=== PATIENT | male | born 1955 | race Caucasian/White ===

== ENCOUNTER → 2020-12-15 12:14 | Outpatient (CLI) | payer OTHER, SELFPAY ==
--- NOTE | 2020-12-15 | DI.RAD.S_ITS ---
PROCEDURE: XR KNEE LT 3V INDICATIONS: LEFT KNEE PAIN TECHNIQUE: 3 views of the knee were acquired. COMPARISON: None. FINDINGS: Bones: No fractures or dislocations. No suspicious bony lesions. Medial compartment moderately severe joint space narrowing with near [id number] articulation. Soft tissues: No joint effusion. No suspicious soft tissue calcifications. IMPRESSION: No trauma found but moderately severe medial compartment degenerative knee joint osteoarthritis is present as noted. Dictated by: Mateusz Ziegler M.D. on 12/15/2020 at 14:36 Approved by: Mateusz Ziegler M.D. on 12/15/2020 at 14:37
== END ==
PROVIDERS: Referring Provider Student in an Organized Health Care Education/Training Program; Visit Provider Student in an Organized Health Care Education/Training Program
DX: M25.562 Pain in left knee (principal); M17.12 Unilateral primary osteoarthritis, left knee
CPT/HCPCS: 73562

== ENCOUNTER → 2021-01-12 11:43 | Outpatient (CLI) | payer OTHER, SELFPAY ==
[2021-01-12 14:09] LABS: COVID19 -Nasal RAPID Negative (Negative)
== END ==
PROVIDERS: PCP Student in an Organized Health Care Education/Training Program; Visit Provider Student in an Organized Health Care Education/Training Program
DX: Z20.822 Contact with and (suspected) exposure to COVID-19 (principal); Z01.812 Encounter for preprocedural laboratory examination
CPT/HCPCS: 87635; C9803

== ENCOUNTER 2021-02-15 13:00 | Outpatient (RCR) | payer OTHER, SELFPAY ==
--- NOTE | 2021-01-12 16:02 | PT.OIE ---
Current Diagnoses Unspecified abnormalities of gait and mobility (01/12/21) Visit Care Team Role Provider Type Mary Alice Bearden MD Attending Provider Physician Primary Care Provider Referring Provider Specialty: Family Practice Address: [address] [place] [address], [address], [place], [address] Email: [email or web address] Physical Therapy Initial Evaluation PT-OP-A Visit Information Start: 01/11/21 08:30 Freq: Status: Active Protocol: Document 01/12/21 13:02 MB (Rec: 01/12/21 13:19 MB [id number]) Out-Patient Physical Therapy Visit Information Visit Information Visit Type Initial Evaluation Visit Note Pre-auth required, [employer] Visit Start Time 13:02 Visit Stop Time 13:45 Total Visit Minutes 43 Visit Number 1 Number of MAINTENANCE DIRECTOR Visits 0 Evaluation Information Evaluation Date 01/12/21 PT-OP-B Current Condition Start: 01/11/21 08:30 Freq: Status: Active Protocol: Document 01/12/21 13:02 MB (Rec: 01/12/21 13:19 MB [id number]) Current Condition History of Current Condition Onset Date 2014 Current Complaints Pain with walking History of Current Condition In 2014, pt fell running upwards on escalator that was moving down. He tripped and hit his left knee cap. He had no fracture. He had 6 monhts of PT and did not get better. He had an MRI and had left knee surgery around 2015. He thinks it was a meniscus repair. He was told that he had OA and patellar tendon damage. Further PMH: depression/ anxiety, HTN, kidney disease, rheumatic fever, hypothyroidism, hyperlipidemia Pt likes to walk everyday and is walking about 2 miles a day . He tried jogging and that was troublesome on his knee. Snorkeling was fun and good on his knee. He tried a regular upright bike and it was troublesome on the knee. Pt would like to be able to walk on trails 3-4 miles. He does not have walking sticks. He tried in the past and it did not work. Pt is sleeping so so. He is taking BP medicine and sometimes he has to get up at night to use the restroom. He occ has to get up and pace and has some depression. Pt reports 4/10 anterior left knee pain that is more distal medial that is worst with walking. Prior Treatments and Tests Left knee x-ray 11/17/20: no trauma but moderately severe medial compartment degenerative knee joint OA is present Treatment Goals Patient/Caregiver Goals To walk 3-4 miles in the yu . PT-OP-C Subjective Start: 01/11/21 08:30 Freq: Status: Active Protocol: Document 01/12/21 13:02 MB (Rec: 01/12/21 13:19 MB [id number]) OP-PT Subjective Patient Comments Patient Comments See history of current condition Patient Questionnaires Lower Extremity Functional Scale LEFS Score 59 LEFS Impairment 20 to 39% Impaired (Score 48- 62) PT-OP-D Balance Start: 01/11/21 08:30 Freq: Status: Active Protocol: Document 01/12/21 13:02 MB (Rec: 01/12/21 15:50 MB [id number]) Balance Tests Other Other Balance Tests Performed Pt has trouble keeping balance for heel raises LLE, even with B index finger support against wall, shoes are off. He self-corrects LOB PT-OP-F Manual Assessment Start: 01/12/21 15:50 Freq: Status: Active Protocol: Document 01/12/21 13:02 MB (Rec: 01/12/21 15:52 MB [id number]) Manual Assessments Soft Tissue Assessment Soft Tissue Mobility Assessment Pt presents with increased tension left adductor attachment medial knee, left medial distal knee joint is more boggy and larger to palpation than the right, B vastus lateralis tension, soft tissue bump medial posterior left knee and tension over middle proximal part of posterior left knee PT-OP-G Mobility & Gait Start: 01/11/21 08:30 Freq: Status: Active Protocol: Document 01/12/21 13:02 MB (Rec: 01/12/21 15:50 MB [id number]) OP Gait Assessment Gait Gait Assistance Required: Independent Distance (Feet) 50 Able to Maintain Weight Bearing Status Yes During Gait Assistive Devices Assistive Device None Orthotic/Prosthetic Devices or Brace: No Gait Deviations General Gait Pattern Antalgic,Decreased Stride Length,Flexed Trunk Factors Limiting Gait Function Factors Limiting Gait Function Limited Range of Motion,Pain, Poor Balance Comments Gait Comments Pt presents with slow and careful gait, wide JOSE, decreased step length, left rearfoot appears occ unstable with weight acceptance and he has left LE anatomical changes compared to the right, see postural comments PT-OP-J Posture/Palpation/Skin Start: 01/11/21 08:30 Freq: Status: Active Protocol: Document 01/12/21 13:02 MB (Rec: 01/12/21 15:50 MB [id number]) Posture Evaluation Comments Posture Comments Standing bare foot: soft tissue bump medial posterior left knee and lateral distal femur appears lateral versus bony changes of left knee. Left tibial torsion altered compared to the right and more overpronation left foot and pes planus compared to the right. B rounded shoulders, decreased lumbar lordosis, right iliac crest mildly higher than the left and pt walks with left leg functionally longer than the right. PT-OP-K Range of Motion Start: 01/11/21 08:30 Freq: Status: Active Protocol: Document 01/12/21 13:02 MB (Rec: 01/12/21 15:50 MB [id number]) Knee Goniometric Range of Motion Knee ROM Limitations Comments Supine AROM right knee 0-130 deg and left knee 0-120 deg. PT-OP-M Strength Start: 01/11/21 08:30 Freq: Status: Active Protocol: Document 01/12/21 13:02 MB (Rec: 01/12/21 15:50 MB [id number]) Hip Strength Hip Manual Muscle Testing Left Flexion (L2) 5 Normal Abduction 5 Normal Adduction 5 Normal Right Flexion (L2) 5 Normal Abduction 5 Normal Adduction 5 Normal Knee Strength Knee Manual Muscle Testing Left Flexion (S2) 5 Normal Extension (L3) 5 Normal Right Flexion (S2) 5 Normal Extension (L3) 5 Normal Ankle/Foot Strength Ankle and Foot Manual Muscle Testing Left Dorsiflexion (L4) 5 Normal Plantarflexion (S1) 3+ Fair+ Inversion 5 Normal Eversion (S1) 5 Normal Comments LOB and difficulty trying to complete 20 reps heel raises with B index finger support on wall and pt starts to lean heavily into the wall Right Dorsiflexion (L4) 5 Normal Plantarflexion (S1) 4 Good Inversion 5 Normal Eversion (S1) 5 Normal Comments Mild difficulty completing 20 reps heel raises with B index finger steadying on wall Toe Strength Toe Manual Muscle Testing Left Great Toe Flexion 5 Normal Right Great Toe Extension 5 Normal PT-OP-T Assessment and Plan Start: 01/11/21 08:30 Freq: Status: Active Protocol: Document 01/12/21 13:02 MB (Rec: 01/12/21 16:02 MB [id number]) Physical Therapy Assessment Rehab Potential Rehabilitation Potential Fair Evaluation Complexity Number of Personal Factors/Comorbidities 1-2 Number of Body Systems Impaired 1-2 Clinical Presentation at Evaluation Evolving Impairments Impairments Activity Tolerance,Balance, Functional Activities, Functional Mobility,Gait,Pain, Posture,ROM,Soft Tissue Mobility Other Impairments Personal factors include sleeping changes/trouble sleeping through the night. His clinical presentation is evolving in setting of progressive degenerative changes of left knee after injury and surgery and x-ray revealing arthritis. Other Concerns Fall Risk Yes Goals 4 Linotype Mechanic Goal (LTG) Pt will perform progressive HEP with I including pelvic realignment, flexibility, balance, core, breathing and strengthening exercises to decrease pain and improve balance by 03/14/21. LTG Duration 8 weeks 3 Linotype Mechanic Goal (LTG) Pt will gait train at least 1500 feet in 6 minutes to improve community ambulation by 03/14/21. LTG Duration 8 weeks 2 Linotype Mechanic Goal (LTG) Pt will perform WNLs on a standardized balance test to decrease fall risk by 03/14/21. LTG Duration 8 weeks 1 Linotype Mechanic Goal (LTG) Pt will perform 20 reps B heel raises with only index finger support for balance to improve strength and balance by 03/14/21. LTG Duration 8 weeks Assessment Summary Assessment Pt is a 65 y/o presenting with chronic left knee injury that was s/p meniscal surgery approximately 5 years ago. He is found to have arthritis. He had PT before surgery but not after and was mostly given exercises. He likes to walk and is having pain and antalgic gait with his short walks for exercises. He wakes up at night and has to walk around and this inhibits recovery. He will benefit from [place] Breathing training to assist with this. He also reports a history of plantar fasciitis and has both knee and foot changes and this is related to his left knee pain and presentation. PT introduced possible benefits of both thigh high compression and [place] sock today. Pt will benefit from PT to address pelvic obliquities affecting gait and alignment, flexibility, gait, balance and strength. Barriers include the degenerative process of his left knee. Physical Therapy Plan Frequency and Duration Frequency of Treatment 2x/Week Duration of Treatment 8 weeks Plan of Care Start Date 01/12/21 Plan of Care End Date 03/14/21 Therapeutic Interventions Therapeutic Interventions Balance Training,Canalithic Repositioning,Gait Training, Home Exercise Program,Joint Mobilizations,Manual Therapy, Neuromuscular Re-education, Patient/Caregiver Education, Self-Care/Home Management,Soft Tissue Mobilization,Taping, Therapeutic Activities, Therapeutic Exercises Modalities Cold Pack/Ice Massage,Hot Packs Next Visit Focus/Plan Next Note Type Treatment Note Next Visit Plan B[place]yko Breathing to help with sleeping, pain and anxiety to help with recovery, pelvic realignment exercises, hamstring stretch with AP, Aron stretch, quad rolling and left adductor work, teach quad rolling for home, KT as needed to help with walking, assess upright bike and ed pt on correct height for his seat at home, Trauma Release exercises for strengthening and balance in the future. Review [place] sock and compression hose ed.
--- NOTE | 2021-01-17 09:44 | PT.OTN ---
Current Diagnoses Unspecified abnormalities of gait and mobility (01/17/21) Physical Therapy Treatment Note PT-OP-A Visit Information Start: 01/11/21 08:30 Freq: Status: Active Protocol: Document 01/17/21 09:02 MB (Rec: 01/17/21 09:38 MB [id number]) Out-Patient Physical Therapy Visit Information Visit Information Visit Type Treatment Note Visit Note Pre-auth required, [employer] Pt goes by Jacinto Visit Start Time 09:02 Visit Stop Time 09:42 Total Visit Minutes 40 Visit Number 2 PT-OP-B Current Condition Start: 01/11/21 08:30 Freq: Status: Active Protocol: Document 01/12/21 13:02 MB (Rec: 01/12/21 13:19 MB [id number]) Current Condition History of Current Condition Onset Date 2014 Current Complaints Pain with walking History of Current Condition In 2014, pt fell running upwards on escalator that was moving down. He tripped and hit his left knee cap. He had no fracture. He had 6 monhts of PT and did not get better. He had an MRI and had left knee surgery around 2015. He thinks it was a meniscus repair. He was told that he had OA and patellar tendon damage. Further PMH: depression/ anxiety, HTN, kidney disease, rheumatic fever, hypothyroidism, hyperlipidemia Pt likes to walk everyday and is walking about 2 miles a day . He tried jogging and that was troublesome on his knee. Snorkeling was fun and good on his knee. He tried a regular upright bike and it was troublesome on the knee. Pt would like to be able to walk on trails 3-4 miles. He does not have walking sticks. He tried in the past and it did not work. Pt is sleeping so so. He is taking BP medicine and sometimes he has to get up at night to use the restroom. He occ has to get up and pace and has some depression. Pt reports 4/10 anterior left knee pain that is more distal medial that is worst with walking. Prior Treatments and Tests Left knee x-ray 11/17/20: no trauma but moderately severe medial compartment degenerative knee joint OA is present Treatment Goals Patient/Caregiver Goals To walk 3-4 miles in the yu . PT-OP-C Subjective Start: 01/11/21 08:30 Freq: Status: Active Protocol: Document 01/17/21 09:02 MB (Rec: 01/17/21 09:38 MB [id number]) OP-PT Subjective Patient Comments Patient Comments Pt states that he is doing better since he is not having to prep for colonoscopy anymore. It was cancelled and will have to be re-scheduled. He went kayaking and fishing. PT-OP-D Balance Start: 01/11/21 08:30 Freq: Status: Active Protocol: Document 01/12/21 13:02 MB (Rec: 01/12/21 15:50 MB [id number]) Balance Tests Other Other Balance Tests Performed Pt has trouble keeping balance for heel raises LLE, even with B index finger support against wall, shoes are off. He self-corrects LOB PT-OP-F Manual Assessment Start: 01/12/21 15:50 Freq: Status: Active Protocol: Document 01/12/21 13:02 MB (Rec: 01/12/21 15:52 MB [id number]) Manual Assessments Soft Tissue Assessment Soft Tissue Mobility Assessment Pt presents with increased tension left adductor attachment medial knee, left medial distal knee joint is more boggy and larger to palpation than the right, B vastus lateralis tension, soft tissue bump medial posterior left knee and tension over middle proximal part of posterior left knee PT-OP-G Mobility & Gait Start: 01/11/21 08:30 Freq: Status: Active Protocol: Document 01/12/21 13:02 MB (Rec: 01/12/21 15:50 MB [id number]) OP Gait Assessment Gait Gait Assistance Required: Independent Distance (Feet) 50 Able to Maintain Weight Bearing Status Yes During Gait Assistive Devices Assistive Device None Orthotic/Prosthetic Devices or Brace: No Gait Deviations General Gait Pattern Antalgic,Decreased Stride Length,Flexed Trunk Factors Limiting Gait Function Factors Limiting Gait Function Limited Range of Motion,Pain, Poor Balance Comments Gait Comments Pt presents with slow and careful gait, wide JOSE, decreased step length, left rearfoot appears occ unstable with weight acceptance and he has left LE anatomical changes compared to the right, see postural comments PT-OP-J Posture/Palpation/Skin Start: 01/11/21 08:30 Freq: Status: Active Protocol: Document 01/12/21 13:02 MB (Rec: 01/12/21 15:50 MB [id number]) Posture Evaluation Comments Posture Comments Standing bare foot: soft tissue bump medial posterior left knee and lateral distal femur appears lateral versus bony changes of left knee. Left tibial torsion altered compared to the right and more overpronation left foot and pes planus compared to the right. B rounded shoulders, decreased lumbar lordosis, right iliac crest mildly higher than the left and pt walks with left leg functionally longer than the right. PT-OP-K Range of Motion Start: 01/11/21 08:30 Freq: Status: Active Protocol: Document 01/12/21 13:02 MB (Rec: 01/12/21 15:50 MB [id number]) Knee Goniometric Range of Motion Knee ROM Limitations Comments Supine AROM right knee 0-130 deg and left knee 0-120 deg. PT-OP-M Strength Start: 01/11/21 08:30 Freq: Status: Active Protocol: Document 01/12/21 13:02 MB (Rec: 01/12/21 15:50 MB [id number]) Hip Strength Hip Manual Muscle Testing Left Flexion (L2) 5 Normal Abduction 5 Normal Adduction 5 Normal Right Flexion (L2) 5 Normal Abduction 5 Normal Adduction 5 Normal Knee Strength Knee Manual Muscle Testing Left Flexion (S2) 5 Normal Extension (L3) 5 Normal Right Flexion (S2) 5 Normal Extension (L3) 5 Normal Ankle/Foot Strength Ankle and Foot Manual Muscle Testing Left Dorsiflexion (L4) 5 Normal Plantarflexion (S1) 3+ Fair+ Inversion 5 Normal Eversion (S1) 5 Normal Comments LOB and difficulty trying to complete 20 reps heel raises with B index finger support on wall and pt starts to lean heavily into the wall Right Dorsiflexion (L4) 5 Normal Plantarflexion (S1) 4 Good Inversion 5 Normal Eversion (S1) 5 Normal Comments Mild difficulty completing 20 reps heel raises with B index finger steadying on wall Toe Strength Toe Manual Muscle Testing Left Great Toe Flexion 5 Normal Right Great Toe Extension 5 Normal PT-OP-Q Treatments Start: 01/11/21 08:30 Freq: Status: Active Protocol: Document 01/17/21 09:02 MB (Rec: 01/17/21 09:38 MB [id number]) Therapeutic Exercises Supine Exercises Abdominal drawing in and pelvic tilt Comments 3 reps, ed to perform before Alek stretch Aron stretch Side bilateral Comments Ed in abdominal drawing in and pelvic tilt first, opposite leg bent, B 45 s Hamstring stretch with MWM AP Side bilateral Comments 1 minute hold, many APs 1 rep each leg Sitting Exercises Rolling pin STM Side bilateral Comments Focus on the left, ed in see saw motion Manual Therapy Treatment Other Other Manual Treatments STM from PT: left hip adductors, rectus femoris and vastus lateralis PT-OP-T Assessment and Plan Start: 01/11/21 08:30 Freq: Status: Active Protocol: Document 01/17/21 09:02 MB (Rec: 01/17/21 09:38 MB [id number]) Physical Therapy Assessment Rehab Potential Rehabilitation Potential Fair Evaluation Complexity Number of Personal Factors/Comorbidities 1-2 Number of Body Systems Impaired 1-2 Clinical Presentation at Evaluation Evolving Impairments Impairments Activity Tolerance,Balance, Functional Activities, Functional Mobility,Gait,Pain, Posture,ROM,Soft Tissue Mobility Other Impairments Personal factors include sleeping changes/trouble sleeping through the night. His clinical presentation is evolving in setting of progressive degenerative changes of left knee after injury and surgery and x-ray revealing arthritis. Other Concerns Fall Risk Yes Goals 4 Nursing Home Goal (LTG) Pt will perform progressive HEP with I including pelvic realignment, flexibility, balance, core, breathing and strengthening exercises to decrease pain and improve balance by 03/14/21. LTG Duration 8 weeks 3 Nursing Home Goal (LTG) Pt will gait train at least 1500 feet in 6 minutes to improve community ambulation by 03/14/21. LTG Duration 8 weeks 2 Nursing Home Goal (LTG) Pt will perform WNLs on a standardized balance test to decrease fall risk by 03/14/21. LTG Duration 8 weeks 1 Tea Room Manager Goal (LTG) Pt will perform 20 reps B heel raises with only index finger support for balance to improve strength and balance by 03/14/21. LTG Duration 8 weeks Assessment Summary Assessment Initiated hamstring and Aron stretches today, self-rolling pin massage and manual work from PT and he tolerates well and his left hip adductors and vastus lateralis tension improve. Con't plan per below. Physical Therapy Plan Frequency and Duration Frequency of Treatment 2x/Week Duration of Treatment 8 weeks Plan of Care Start Date 01/12/21 Plan of Care End Date 03/14/21 Therapeutic Interventions Therapeutic Interventions Balance Training,Canalithic Repositioning,Gait Training, Home Exercise Program,Joint Mobilizations,Manual Therapy, Neuromuscular Re-education, Patient/Caregiver Education, Self-Care/Home Management,Soft Tissue Mobilization,Taping, Therapeutic Activities, Therapeutic Exercises Modalities Cold Pack/Ice Massage,Hot Packs Next Visit Focus/Plan Next Note Type Treatment Note Next Visit Plan Scott Breathing to help with sleeping, pain and anxiety to help with recovery, pelvic realignment exercises, KT as needed to help with walking, assess upright bike and ed pt on correct height for his seat at home, Trauma Release exercises for strengthening and balance in the future
--- NOTE | 2021-01-20 11:22 | PT.OTN ---
Current Diagnoses Unspecified abnormalities of gait and mobility (01/20/21) Physical Therapy Treatment Note PT-OP-A Visit Information Start: 01/11/21 08:30 Freq: Status: Active Protocol: Document 01/20/21 10:33 SP (Rec: 01/20/21 11:38 SP [id number]) Out-Patient Physical Therapy Visit Information Visit Information Visit Type Treatment Note Visit Note Pre-auth required, [employer] Advantage Pt goes by Jacinto Visit Start Time 10:33 Visit Stop Time 11:22 Total Visit Minutes 49 Visit Number 3 Number of MENAGERIE CARETAKER Visits 1 Evaluation Information Evaluation Date 01/12/21 PT-OP-B Current Condition Start: 01/11/21 08:30 Freq: Status: Active Protocol: Document 01/12/21 13:02 MB (Rec: 01/12/21 13:19 MB [id number]) Current Condition History of Current Condition Onset Date 2014 Current Complaints Pain with walking History of Current Condition In 2014, pt fell running upwards on escalator that was moving down. He tripped and hit his left knee cap. He had no fracture. He had 6 monhts of PT and did not get better. He had an MRI and had left knee surgery around 2015. He thinks it was a meniscus repair. He was told that he had OA and patellar tendon damage. Further PMH: depression/ anxiety, HTN, kidney disease, rheumatic fever, hypothyroidism, hyperlipidemia Pt likes to walk everyday and is walking about 2 miles a day . He tried jogging and that was troublesome on his knee. Snorkeling was fun and good on his knee. He tried a regular upright bike and it was troublesome on the knee. Pt would like to be able to walk on trails 3-4 miles. He does not have walking sticks. He tried in the past and it did not work. Pt is sleeping so so. He is taking BP medicine and sometimes he has to get up at night to use the restroom. He occ has to get up and pace and has some depression. Pt reports 4/10 anterior left knee pain that is more distal medial that is worst with walking. Prior Treatments and Tests Left knee x-ray 11/17/20: no trauma but moderately severe medial compartment degenerative knee joint OA is present Treatment Goals Patient/Caregiver Goals To walk 3-4 miles in the yu . PT-OP-C Subjective Start: 01/11/21 08:30 Freq: Status: Active Protocol: Document 01/20/21 10:33 SP (Rec: 01/20/21 11:38 SP [id number]) OP-PT Subjective Patient Comments Patient Comments Pt stated saw ortho and not recommending L knee replacement but completed an injection lateral aspect of L knee and helping alot. Did have some side effects of hiccups for about 12 hours, has decreased but still getting occasionally. Patient Reported Progress Improving PT-OP-D Balance Start: 01/11/21 08:30 Freq: Status: Active Protocol: Document 01/12/21 13:02 MB (Rec: 01/12/21 15:50 MB [id number]) Balance Tests Other Other Balance Tests Performed Pt has trouble keeping balance for heel raises LLE, even with B index finger support against wall, shoes are off. He self-corrects LOB PT-OP-F Manual Assessment Start: 01/12/21 15:50 Freq: Status: Active Protocol: Document 01/12/21 13:02 MB (Rec: 01/12/21 15:52 MB [id number]) Manual Assessments Soft Tissue Assessment Soft Tissue Mobility Assessment Pt presents with increased tension left adductor attachment medial knee, left medial distal knee joint is more boggy and larger to palpation than the right, B vastus lateralis tension, soft tissue bump medial posterior left knee and tension over middle proximal part of posterior left knee PT-OP-G Mobility & Gait Start: 01/11/21 08:30 Freq: Status: Active Protocol: Document 01/12/21 13:02 MB (Rec: 01/12/21 15:50 MB [id number]) OP Gait Assessment Gait Gait Assistance Required: Independent Distance (Feet) 50 Able to Maintain Weight Bearing Status Yes During Gait Assistive Devices Assistive Device None Orthotic/Prosthetic Devices or Brace: No Gait Deviations General Gait Pattern Antalgic,Decreased Stride Length,Flexed Trunk Factors Limiting Gait Function Factors Limiting Gait Function Limited Range of Motion,Pain, Poor Balance Comments Gait Comments Pt presents with slow and careful gait, wide JOSE, decreased step length, left rearfoot appears occ unstable with weight acceptance and he has left LE anatomical changes compared to the right, see postural comments PT-OP-J Posture/Palpation/Skin Start: 01/11/21 08:30 Freq: Status: Active Protocol: Document 01/12/21 13:02 MB (Rec: 01/12/21 15:50 MB [id number]) Posture Evaluation Comments Posture Comments Standing bare foot: soft tissue bump medial posterior left knee and lateral distal femur appears lateral versus bony changes of left knee. Left tibial torsion altered compared to the right and more overpronation left foot and pes planus compared to the right. B rounded shoulders, decreased lumbar lordosis, right iliac crest mildly higher than the left and pt walks with left leg functionally longer than the right. PT-OP-K Range of Motion Start: 01/11/21 08:30 Freq: Status: Active Protocol: Document 01/12/21 13:02 MB (Rec: 01/12/21 15:50 MB [id number]) Knee Goniometric Range of Motion Knee ROM Limitations Comments Supine AROM right knee 0-130 deg and left knee 0-120 deg. PT-OP-M Strength Start: 01/11/21 08:30 Freq: Status: Active Protocol: Document 01/12/21 13:02 MB (Rec: 01/12/21 15:50 MB [id number]) Hip Strength Hip Manual Muscle Testing Left Flexion (L2) 5 Normal Abduction 5 Normal Adduction 5 Normal Right Flexion (L2) 5 Normal Abduction 5 Normal Adduction 5 Normal Knee Strength Knee Manual Muscle Testing Left Flexion (S2) 5 Normal Extension (L3) 5 Normal Right Flexion (S2) 5 Normal Extension (L3) 5 Normal Ankle/Foot Strength Ankle and Foot Manual Muscle Testing Left Dorsiflexion (L4) 5 Normal Plantarflexion (S1) 3+ Fair+ Inversion 5 Normal Eversion (S1) 5 Normal Comments LOB and difficulty trying to complete 20 reps heel raises with B index finger support on wall and pt starts to lean heavily into the wall Right Dorsiflexion (L4) 5 Normal Plantarflexion (S1) 4 Good Inversion 5 Normal Eversion (S1) 5 Normal Comments Mild difficulty completing 20 reps heel raises with B index finger steadying on wall Toe Strength Toe Manual Muscle Testing Left Great Toe Flexion 5 Normal Right Great Toe Extension 5 Normal PT-OP-Q Treatments Start: 01/11/21 08:30 Freq: Status: Active Protocol: Document 01/20/21 10:33 SP (Rec: 01/20/21 11:38 SP [id number]) Therapeutic Exercises Supine Exercises pelvic realignment ex Supine Exercise Name added to HEP Side bilateral Reps/Minutes 3sec hold x5 each Comments good slow engagement meet resistance, not over pressure buteyko breathing Supine Exercise Name 1, 2, 3: added to HEP Reps/Minutes hold 30-35 sec x6 each in 6 min Abdominal drawing in and pelvic tilt Supine Exercise Name review HEP Comments 3 reps, ed to perform before Alek stretch Aron stretch Supine Exercise Name review HEP Side bilateral Comments Ed in abdominal drawing in and pelvic tilt first, opposite leg bent, B 45 s Hamstring stretch with MWM AP Supine Exercise Name review HEP Side bilateral Comments 1 minute hold, many APs 1 rep each leg Sitting Exercises Rolling pin STM Sitting Exercise Name discussed self application doing rolling w/ intrument Side bilateral Comments Focus on the left, ed in see saw motion Manual Therapy Treatment Soft Tissue Mobilization STMs Body Location L vastus lateralis, ITB Mobilization Type Cross-Friction,Strumming Intensity/Depth Moderate Body Position Supine Comments good tolerance, discussed is performing at home with rolling stick/device see saw motions as directed Taping k taping Body Location Lateral C taping L knee Treatment Focus patella stabilization and lateral support Type of Tape Kinesio Tape Skin Inspection intact,normal Comments L lateral patella jt like: small dime size light bruise from injection. PT-OP-T Assessment and Plan Start: 01/11/21 08:30 Freq: Status: Active Protocol: Document 01/20/21 10:33 SP (Rec: 01/20/21 11:38 SP [id number]) Physical Therapy Assessment Goals 4 Clinical Training Coordinator Goal (LTG) Pt will perform progressive HEP with I including pelvic realignment, flexibility, balance, core, breathing and strengthening exercises to decrease pain and improve balance by 03/14/21. LTG Duration 8 weeks 3 Intermediate Goal (LTG) Pt will gait train at least 1500 feet in 6 minutes to improve community ambulation by 03/14/21. LTG Duration 8 weeks 2 Clinical Training Coordinator Goal (LTG) Pt will perform WNLs on a standardized balance test to decrease fall risk by 03/14/21. LTG Duration 8 weeks 1 Intermediate Goal (LTG) Pt will perform 20 reps B heel raises with only index finger support for balance to improve strength and balance by 03/14/21. LTG Duration 8 weeks Assessment Summary Assessment Good form with HEP abdominal draw in, challenging during Aron stretch but good self corrections. Intiated butekyo breathing 1-3 exercises today with little challenging but good tolerance 30-35 sec as directed and pelvic realignment ex as directed with no adverse affects. Not sure why breathing helps with back and knee pain but feel can take better breathes with these techniques. MENAGERIE CARETAKER educated Buteyko Breathing pelvic realignment exercises to help with sleeping, pain and anxiety to help with recovery. Pt understood adverse affects to K taping and remove if experiences. Physical Therapy Plan Frequency and Duration Frequency of Treatment 2x/Week Duration of Treatment 8 weeks Plan of Care Start Date 01/12/21 Plan of Care End Date 03/14/21 Therapeutic Interventions Therapeutic Interventions Balance Training,Canalithic Repositioning,Gait Training, Home Exercise Program,Joint Mobilizations,Manual Therapy, Neuromuscular Re-education, Patient/Caregiver Education, Self-Care/Home Management,Soft Tissue Mobilization,Taping, Therapeutic Activities, Therapeutic Exercises Modalities Cold Pack/Ice Massage,Hot Packs Next Visit Focus/Plan Next Note Type Treatment Note Next Visit Plan Assess response to HEP review, beutekyo breathing and pelvic realignment ex initiation and KT last tx. Continue K tapt as needed to help with walking, assess upright bike and ed pt on correct height for his seat at home, Trauma Release exercises for strengthening and balance in the future
--- NOTE | 2021-01-24 13:03 | PT.OTN ---
Current Diagnoses Unspecified abnormalities of gait and mobility (01/24/21) Physical Therapy Treatment Note PT-OP-A Visit Information Start: 01/11/21 08:30 Freq: Status: Active Protocol: Document 01/24/21 12:15 SP (Rec: 01/24/21 16:06 SP [id number]) Out-Patient Physical Therapy Visit Information Visit Information Visit Type Treatment Note Visit Note Pre-auth required, [employer] Ad[employer]age Pt goes by Jacinto Visit Start Time 12:15 Visit Stop Time 13:03 Total Visit Minutes 48 Visit Number 4 Number of SHIPWRIGHT SUPERVISOR Visits 1 Evaluation Information Evaluation Date 01/12/21 PT-OP-B Current Condition Start: 01/11/21 08:30 Freq: Status: Active Protocol: Document 01/12/21 13:02 MB (Rec: 01/12/21 13:19 MB [id number]) Current Condition History of Current Condition Onset Date 2014 Current Complaints Pain with walking History of Current Condition In 2014, pt fell running upwards on escalator that was moving down. He tripped and hit his left knee cap. He had no fracture. He had 6 monhts of PT and did not get better. He had an MRI and had left knee surgery around 2015. He thinks it was a meniscus repair. He was told that he had OA and patellar tendon damage. Further PMH: depression/ anxiety, HTN, kidney disease, rheumatic fever, hypothyroidism, hyperlipidemia Pt likes to walk everyday and is walking about 2 miles a day . He tried jogging and that was troublesome on his knee. Snorkeling was fun and good on his knee. He tried a regular upright bike and it was troublesome on the knee. Pt would like to be able to walk on trails 3-4 miles. He does not have walking sticks. He tried in the past and it did not work. Pt is sleeping so so. He is taking BP medicine and sometimes he has to get up at night to use the restroom. He occ has to get up and pace and has some depression. Pt reports 4/10 anterior left knee pain that is more distal medial that is worst with walking. Prior Treatments and Tests Left knee x-ray 11/17/20: no trauma but moderately severe medial compartment degenerative knee joint OA is present Treatment Goals Patient/Caregiver Goals To walk 3-4 miles in the yu . PT-OP-C Subjective Start: 01/11/21 08:30 Freq: Status: Active Protocol: Document 01/24/21 12:15 SP (Rec: 01/24/21 16:06 SP [id number]) OP-PT Subjective Patient Comments Patient Comments Pt arrived wearing flipflops, stated hiccups gone, not sure if it was the breathing. L knee pain today inferior medial patella. PT-OP-D Balance Start: 01/11/21 08:30 Freq: Status: Active Protocol: Document 01/12/21 13:02 MB (Rec: 01/12/21 15:50 MB [id number]) Balance Tests Other Other Balance Tests Performed Pt has trouble keeping balance for heel raises LLE, even with B index finger support against wall, shoes are off. He self-corrects LOB PT-OP-F Manual Assessment Start: 01/12/21 15:50 Freq: Status: Active Protocol: Document 01/12/21 13:02 MB (Rec: 01/12/21 15:52 MB [id number]) Manual Assessments Soft Tissue Assessment Soft Tissue Mobility Assessment Pt presents with increased tension left adductor attachment medial knee, left medial distal knee joint is more boggy and larger to palpation than the right, B vastus lateralis tension, soft tissue bump medial posterior left knee and tension over middle proximal part of posterior left knee PT-OP-G Mobility & Gait Start: 01/11/21 08:30 Freq: Status: Active Protocol: Document 01/12/21 13:02 MB (Rec: 01/12/21 15:50 MB [id number]) OP Gait Assessment Gait Gait Assistance Required: Independent Distance (Feet) 50 Able to Maintain Weight Bearing Status Yes During Gait Assistive Devices Assistive Device None Orthotic/Prosthetic Devices or Brace: No Gait Deviations General Gait Pattern Antalgic,Decreased Stride Length,Flexed Trunk Factors Limiting Gait Function Factors Limiting Gait Function Limited Range of Motion,Pain, Poor Balance Comments Gait Comments Pt presents with slow and careful gait, wide JOSE, decreased step length, left rearfoot appears occ unstable with weight acceptance and he has left LE anatomical changes compared to the right, see postural comments PT-OP-J Posture/Palpation/Skin Start: 01/11/21 08:30 Freq: Status: Active Protocol: Document 01/12/21 13:02 MB (Rec: 01/12/21 15:50 MB [id number]) Posture Evaluation Comments Posture Comments Standing bare foot: soft tissue bump medial posterior left knee and lateral distal femur appears lateral versus bony changes of left knee. Left tibial torsion altered compared to the right and more overpronation left foot and pes planus compared to the right. B rounded shoulders, decreased lumbar lordosis, right iliac crest mildly higher than the left and pt walks with left leg functionally longer than the right. PT-OP-K Range of Motion Start: 01/11/21 08:30 Freq: Status: Active Protocol: Document 01/12/21 13:02 MB (Rec: 01/12/21 15:50 MB [id number]) Knee Goniometric Range of Motion Knee ROM Limitations Comments Supine AROM right knee 0-130 deg and left knee 0-120 deg. PT-OP-M Strength Start: 01/11/21 08:30 Freq: Status: Active Protocol: Document 01/12/21 13:02 MB (Rec: 01/12/21 15:50 MB [id number]) Hip Strength Hip Manual Muscle Testing Left Flexion (L2) 5 Normal Abduction 5 Normal Adduction 5 Normal Right Flexion (L2) 5 Normal Abduction 5 Normal Adduction 5 Normal Knee Strength Knee Manual Muscle Testing Left Flexion (S2) 5 Normal Extension (L3) 5 Normal Right Flexion (S2) 5 Normal Extension (L3) 5 Normal Ankle/Foot Strength Ankle and Foot Manual Muscle Testing Left Dorsiflexion (L4) 5 Normal Plantarflexion (S1) 3+ Fair+ Inversion 5 Normal Eversion (S1) 5 Normal Comments LOB and difficulty trying to complete 20 reps heel raises with B index finger support on wall and pt starts to lean heavily into the wall Right Dorsiflexion (L4) 5 Normal Plantarflexion (S1) 4 Good Inversion 5 Normal Eversion (S1) 5 Normal Comments Mild difficulty completing 20 reps heel raises with B index finger steadying on wall Toe Strength Toe Manual Muscle Testing Left Great Toe Flexion 5 Normal Right Great Toe Extension 5 Normal PT-OP-Q Treatments Start: 01/11/21 08:30 Freq: Status: Active Protocol: Document 01/24/21 12:15 SP (Rec: 01/24/21 16:06 SP [id number]) Cardio Equipment Bicycle (Upright) Duration (Minutes) 6 Resistance 12 Seat Position 6 Other 1.6 miles, 60% Max HR Therapeutic Exercises Supine Exercises pelvic realignment ex Supine Exercise Name HEP review Side bilateral Reps/Minutes 3sec hold x5 each Comments good slow engagement meet resistance, cued not over pressure Aron stretch Supine Exercise Name review HEP Side bilateral Comments Ed in abdominal drawing in and pelvic tilt first, opposite leg bent, B 45 s Standing Exercises trauma release ex Standing Exercise Name ankle side sway, ankle pron/ sup, SL heel raise, SL mini squat, spine ext Equipment Used added to HEP Reps/Minutes as directed 1-6 (hand outs) Comments cued hip hinge and posterior chain durng SL activities Manual Therapy Treatment Soft Tissue Mobilization STMs Body Location L vastus lateralis, ITB Mobilization Type Cross-Friction,Instrument Assisted,Rolling,Strumming Intensity/Depth Moderate Body Position Supine Comments manual, good tolerance and discussed is performing at home with rolling stick/device see saw motions as directed Taping k taping Body Location L knee Treatment Focus decompression of patellar tendon Type of Tape Yohannes Skin Inspection intact,normal Comments fat pad taping for anterior tibial discomfort ( decompression). PT-OP-T Assessment and Plan Start: 01/11/21 08:30 Freq: Status: Active Protocol: Document 01/24/21 12:15 SP (Rec: 01/24/21 16:06 SP [id number]) Physical Therapy Assessment Goals 4 Precision Honing Machine Operator Goal (LTG) Pt will perform progressive HEP with I including pelvic realignment, flexibility, balance, core, breathing and strengthening exercises to decrease pain and improve balance by 03/14/21. 01/24/21: rolling stick self STMs, beutekyo breathing ex, aron stretch, HS stretch, pelvic realignment, trauma release ex 1-6. LTG Duration 8 weeks 3 Nursing Home Goal (LTG) Pt will gait train at least 1500 feet in 6 minutes to improve community ambulation by 03/14/21. LTG Duration 8 weeks 2 Precision Honing Machine Operator Goal (LTG) Pt will perform WNLs on a standardized balance test to decrease fall risk by 03/14/21. LTG Duration 8 weeks 1 Precision Honing Machine Operator Goal (LTG) Pt will perform 20 reps B heel raises with only index finger support for balance to improve strength and balance by 03/14/21. LTG Duration 8 weeks Assessment Summary Assessment Pt responded well to upright bike and HEP review. Reassess HEP form: see goal #4. Pt requires cuing for SL mini squat hip hinge and posterior chain knee with /behind toes for decrease anterior L knee discomfort, continue to reassess and educate painfree range. Pt felt Coveroll and Levy taping to patellar tendon felt helped support anterior knee pain. Understood adverse affects and remove carefully if experience. Physical Therapy Plan Frequency and Duration Frequency of Treatment 2x/Week Duration of Treatment 8 weeks Plan of Care Start Date 01/12/21 Plan of Care End Date 03/14/21 Therapeutic Interventions Therapeutic Interventions Balance Training,Canalithic Repositioning,Gait Training, Home Exercise Program,Joint Mobilizations,Manual Therapy, Neuromuscular Re-education, Patient/Caregiver Education, Self-Care/Home Management,Soft Tissue Mobilization,Taping, Therapeutic Activities, Therapeutic Exercises Modalities Cold Pack/Ice Massage,Hot Packs Next Visit Focus/Plan Next Note Type Treatment Note Next Visit Plan Assess response to HEP review, initiated trauma release ex 1 -6, coverroll/ levy decompression/ fat pad patellar tendon taping L knee to assist pain last tx. Continue taping as needed to help with walking, ed pt on correct height for his seat upright bike seat at home.
--- NOTE | 2021-01-27 11:25 | PT.OTN ---
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 He tripped and hit his left knee cap. He had no fracture. He had 6 monhts of PT and did not get better. He had an MRI and had left knee surgery around 2015. He thinks it was a meniscus repair. He was told that he had OA and patellar tendon damage. Further PMH: depression/ anxiety, HTN, kidney disease, rheumatic fever, hypothyroidism, hyperlipidemia Pt likes to walk everyday and is walking about 2 miles a day . He tried jogging and that was troublesome on his knee. Snorkeling was fun and good on his knee. He tried a regular upright bike and it was troublesome on the knee. Pt would like to be able to walk on trails 3-4 miles. He does not have walking sticks. He tried in the past and it did not work. Pt is sleeping so so. He is taking BP medicine and sometimes he has to get up at night to use the restroom. He occ has to get up and pace and has some depression. Pt reports 4/10 anterior left knee pain that is more distal medial that is worst with walking. Prior Treatments and Tests Left knee x-ray 11/17/20: no trauma but moderately severe medial compartment degenerative knee joint OA is present Treatment Goals Patient/Caregiver Goals To walk 3-4 miles in the yu . PT-OP-C Subjective Start: 01/11/21 08:30 Freq: Status: Active Protocol: Document 01/27/21 10:32 SP (Rec: 01/27/21 11:39 SP [id number]) OP-PT Subjective Patient Comments Patient Comments Pt wearing sneakers today, stated walked to PT appt today . Pt stated front knee was sore after last tx and thinks the single leg exercise was a little sore and not sure the taping did any help. PT-OP-D Balance Start: 01/11/21 08:30 Freq: Status: Active Protocol: Document 01/12/21 13:02 MB (Rec: 01/12/21 15:50 MB [id number]) Balance Tests Other Other Balance Tests Performed Pt has trouble keeping balance for heel raises LLE, even with B index finger support against wall, shoes are off. He self-corrects LOB PT-OP-F Manual Assessment Start: 01/12/21 15:50 Freq: Status: Active Protocol: Document 01/12/21 13:02 MB (Rec: 01/12/21 15:52 MB [id number]) Manual Assessments Soft Tissue Assessment Soft Tissue Mobility Assessment Pt presents with increased tension left adductor attachment medial knee, left medial distal knee joint is more boggy and larger to palpation than the right, B vastus lateralis tension, soft tissue bump medial posterior left knee and tension over middle proximal part of posterior left knee PT-OP-G Mobility & Gait Start: 01/11/21 08:30 Freq: Status: Active Protocol: Document 01/12/21 13:02 MB (Rec: 01/12/21 15:50 MB [id number]) OP Gait Assessment Gait Gait Assistance Required: Independent Distance (Feet) 50 Able to Maintain Weight Bearing Status Yes During Gait Assistive Devices Assistive Device None Orthotic/Prosthetic Devices or Brace: No Gait Deviations General Gait Pattern Antalgic,Decreased Stride Length,Flexed Trunk Factors Limiting Gait Function Factors Limiting Gait Function Limited Range of Motion,Pain, Poor Balance Comments Gait Comments Pt presents with slow and careful gait, wide JOSE, decreased step length, left rearfoot appears occ unstable with weight acceptance and he has left LE anatomical changes compared to the right, see postural comments PT-OP-J Posture/Palpation/Skin Start: 01/11/21 08:30 Freq: Status: Active Protocol: Document 01/12/21 13:02 MB (Rec: 01/12/21 15:50 MB [id number]) Posture Evaluation Comments Posture Comments Standing bare foot: soft tissue bump medial posterior left knee and lateral distal femur appears lateral versus bony changes of left knee. Left tibial torsion altered compared to the right and more overpronation left foot and pes planus compared to the right. B rounded shoulders, decreased lumbar lordosis, right iliac crest mildly higher than the left and pt walks with left leg functionally longer than the right. PT-OP-K Range of Motion Start: 01/11/21 08:30 Freq: Status: Active Protocol: Document 01/12/21 13:02 MB (Rec: 01/12/21 15:50 MB [id number]) Knee Goniometric Range of Motion Knee ROM Limitations Comments Supine AROM right knee 0-130 deg and left knee 0-120 deg. PT-OP-M Strength Start: 01/11/21 08:30 Freq: Status: Active Protocol: Document 01/12/21 13:02 MB (Rec: 01/12/21 15:50 MB [id number]) Hip Strength Hip Manual Muscle Testing Left Flexion (L2) 5 Normal Abduction 5 Normal Adduction 5 Normal Right Flexion (L2) 5 Normal Abduction 5 Normal Adduction 5 Normal Knee Strength Knee Manual Muscle Testing Left Flexion (S2) 5 Normal Extension (L3) 5 Normal Right Flexion (S2) 5 Normal Extension (L3) 5 Normal Ankle/Foot Strength Ankle and Foot Manual Muscle Testing Left Dorsiflexion (L4) 5 Normal Plantarflexion (S1) 3+ Fair+ Inversion 5 Normal Eversion (S1) 5 Normal Comments LOB and difficulty trying to complete 20 reps heel raises with B index finger support on wall and pt starts to lean heavily into the wall Right Dorsiflexion (L4) 5 Normal Plantarflexion (S1) 4 Good Inversion 5 Normal Eversion (S1) 5 Normal Comments Mild difficulty completing 20 reps heel raises with B index finger steadying on wall Toe Strength Toe Manual Muscle Testing Left Great Toe Flexion 5 Normal Right Great Toe Extension 5 Normal PT-OP-Q Treatments Start: 01/11/21 08:30 Freq: Status: Active Protocol: Document 01/27/21 10:32 SP (Rec: 01/27/21 11:39 SP [id number]) Cardio Equipment Bicycle (Upright) Duration (Minutes) 8 Resistance 12 Seat Position 6 Other 12.19 miles, 70% Max HR (on machine read) Therapeutic Exercises Supine Exercises TA SLR Side left Resistance AROM Reps/Minutes 2x10 Comments good quad facilitation, painfree Aron stretch Supine Exercise Name review HEP Side bilateral Comments Ed in abdominal drawing in and pelvic tilt first, opposite leg bent, B 45 s Hamstring stretch with MWM AP Supine Exercise Name review HEP Side bilateral Comments 1 minute hold, many APs 1 rep each leg Sitting Exercises Rolling pin STM Sitting Exercise Name performed today pre PT and end tx Side bilateral Comments both w/ more focus on the left w/ saw motion Standing Exercises trauma release ex Standing Exercise Name 1-8 Equipment Used review HEP Reps/Minutes as directed 1-8 (hand outs) Comments Pain with single leg mini squat, changed to double leg today, cued hip rob Gait Training Gait Activity 6MWT Device Used 0 Level of Assistance I Surface level Distance/Duration 1477 ft Treatment Focus endurance and mechanics Comments cued awareness of decreasd knee flexion during midstance phase. PT-OP-T Assessment and Plan Start: 01/11/21 08:30 Freq: Status: Active Protocol: Document 01/27/21 10:32 SP (Rec: 01/27/21 11:39 SP [id number]) Physical Therapy Assessment Goals 4 Threading Machine Tender Goal (LTG) Pt will perform progressive HEP with I including pelvic realignment, flexibility, balance, core, breathing and strengthening exercises to decrease pain and improve balance by 03/14/21. 01/24/21: rolling stick self STMs, beutekyo breathing ex, aron stretch, HS stretch, pelvic realignment, trauma release ex 1-8, SLR w/ ER. LTG Duration 8 weeks 3 Alf Goal (LTG) Pt will gait train at least 1500 feet in 6 minutes to improve community ambulation by 03/14/21. 01/27/21: progressin ft in 6 min laps in clinic. LTG Duration 8 weeks 2 Threading Machine Tender Goal (LTG) Pt will perform WNLs on a standardized balance test to decrease fall risk by 03/14/21. LTG Duration 8 weeks 1 Threading Machine Tender Goal (LTG) Pt will perform 20 reps B heel raises with only index finger support for balance to improve strength and balance by 03/14/21. 01/27/21: progressing: single leg 10 reps before tires contact BUE on back chair. LTG Duration 8 weeks Assessment Summary Assessment Pt does not have a bike at home but provided education on seat height and able to increase mileage today. Reviewed HEP, adjusted SL mini squat to double leg due to L knee pain and mod cuing for knee alignment, improved DL. Good respone to Trauma release 7-8 added today, no pain and good form, also added SLR w/ hip ER for VMO facilitation. Pt stated feel is making gains in strength and walking, still little pain over medial tibia 1-10/27 especially at end range extension in standing. No pain end tx. Physical Therapy Plan Frequency and Duration Frequency of Treatment 2x/Week Duration of Treatment 8 weeks Plan of Care Start Date 01/12/21 Plan of Care End Date 03/14/21 Therapeutic Interventions Therapeutic Interventions Balance Training,Canalithic Repositioning,Gait Training, Home Exercise Program,Joint Mobilizations,Manual Therapy, Neuromuscular Re-education, Patient/Caregiver Education, Self-Care/Home Management,Soft Tissue Mobilization,Taping, Therapeutic Activities, Therapeutic Exercises Modalities Cold Pack/Ice Massage,Hot Packs Next Visit Focus/Plan Next Note Type Treatment Note Next Visit Plan Assess response to HEP review. Various taping hasn't helped so DC'd.
--- NOTE | 2021-01-31 11:14 | PT.OTN ---
Current Diagnoses Unspecified abnormalities of gait and mobility (01/31/21) Physical Therapy Treatment Note PT-OP-A Visit Information Start: 01/11/21 08:30 Freq: Status: Active Protocol: Document 01/31/21 10:30 MB (Rec: 01/31/21 11:11 MB [id number]) Out-Patient Physical Therapy Visit Information Visit Information Visit Type Treatment Note Visit Note Pre-auth required, [employer] Visit Start Time 10:30 Visit Stop Time 11:15 Total Visit Minutes 45 Visit Number 6 PT-OP-B Current Condition Start: 01/11/21 08:30 Freq: Status: Active Protocol: Document 01/12/21 13:02 MB (Rec: 01/12/21 13:19 MB [id number]) Current Condition History of Current Condition Onset Date 2014 Current Complaints Pain with walking History of Current Condition In 2014, pt fell running upwards on escalator that was moving down. He tripped and hit his left knee cap. He had no fracture. He had 6 monhts of PT and did not get better. He had an MRI and had left knee surgery around 2015. He thinks it was a meniscus repair. He was told that he had OA and patellar tendon damage. Further PMH: depression/ anxiety, HTN, kidney disease, rheumatic fever, hypothyroidism, hyperlipidemia Pt likes to walk everyday and is walking about 2 miles a day . He tried jogging and that was troublesome on his knee. Snorkeling was fun and good on his knee. He tried a regular upright bike and it was troublesome on the knee. Pt would like to be able to walk on trails 3-4 miles. He does not have walking sticks. He tried in the past and it did not work. Pt is sleeping so so. He is taking BP medicine and sometimes he has to get up at night to use the restroom. He occ has to get up and pace and has some depression. Pt reports 4/10 anterior left knee pain that is more distal medial that is worst with walking. Prior Treatments and Tests Left knee x-ray 11/17/20: no trauma but moderately severe medial compartment degenerative knee joint OA is present Treatment Goals Patient/Caregiver Goals To walk 3-4 miles in the yu . PT-OP-C Subjective Start: 01/11/21 08:30 Freq: Status: Active Protocol: Document 01/31/21 10:30 MB (Rec: 01/31/21 11:11 MB [id number]) OP-PT Subjective Patient Comments Patient Comments Pt states that he went for a long walk yesterday. He feels a little less knots since starting therapy. Pt states that Dr. Gilomre did not tell him he needs a knee replacement and he got a shot. He had hiccups for two days. PT-OP-D Balance Start: 01/11/21 08:30 Freq: Status: Active Protocol: Document 01/12/21 13:02 MB (Rec: 01/12/21 15:50 MB [id number]) Balance Tests Other Other Balance Tests Performed Pt has trouble keeping balance for heel raises LLE, even with B index finger support against wall, shoes are off. He self-corrects LOB PT-OP-F Manual Assessment Start: 01/12/21 15:50 Freq: Status: Active Protocol: Document 01/12/21 13:02 MB (Rec: 01/12/21 15:52 MB [id number]) Manual Assessments Soft Tissue Assessment Soft Tissue Mobility Assessment Pt presents with increased tension left adductor attachment medial knee, left medial distal knee joint is more boggy and larger to palpation than the right, B vastus lateralis tension, soft tissue bump medial posterior left knee and tension over middle proximal part of posterior left knee PT-OP-G Mobility & Gait Start: 01/11/21 08:30 Freq: Status: Active Protocol: Document 01/12/21 13:02 MB (Rec: 01/12/21 15:50 MB [id number]) OP Gait Assessment Gait Gait Assistance Required: Independent Distance (Feet) 50 Able to Maintain Weight Bearing Status Yes During Gait Assistive Devices Assistive Device None Orthotic/Prosthetic Devices or Brace: No Gait Deviations General Gait Pattern Antalgic,Decreased Stride Length,Flexed Trunk Factors Limiting Gait Function Factors Limiting Gait Function Limited Range of Motion,Pain, Poor Balance Comments Gait Comments Pt presents with slow and careful gait, wide JOSE, decreased step length, left rearfoot appears occ unstable with weight acceptance and he has left LE anatomical changes compared to the right, see postural comments PT-OP-J Posture/Palpation/Skin Start: 01/11/21 08:30 Freq: Status: Active Protocol: Document 01/12/21 13:02 MB (Rec: 04/28/21 15:50 MB [id number]) Posture Evaluation Comments Posture Comments Standing bare foot: soft tissue bump medial posterior left knee and lateral distal femur appears lateral versus bony changes of left knee. Left tibial torsion altered compared to the right and more overpronation left foot and pes planus compared to the right. B rounded shoulders, decreased lumbar lordosis, right iliac crest mildly higher than the left and pt walks with left leg functionally longer than the right. PT-OP-K Range of Motion Start: 01/11/21 08:30 Freq: Status: Active Protocol: Document 01/12/21 13:02 MB (Rec: 01/12/21 15:50 MB [id number]) Knee Goniometric Range of Motion Knee ROM Limitations Comments Supine AROM right knee 0-130 deg and left knee 0-120 deg. PT-OP-M Strength Start: 01/11/21 08:30 Freq: Status: Active Protocol: Document 01/12/21 13:02 MB (Rec: 01/12/21 15:50 MB [id number]) Hip Strength Hip Manual Muscle Testing Left Flexion (L2) 5 Normal Abduction 5 Normal Adduction 5 Normal Right Flexion (L2) 5 Normal Abduction 5 Normal Adduction 5 Normal Knee Strength Knee Manual Muscle Testing Left Flexion (S2) 5 Normal Extension (L3) 5 Normal Right Flexion (S2) 5 Normal Extension (L3) 5 Normal Ankle/Foot Strength Ankle and Foot Manual Muscle Testing Left Dorsiflexion (L4) 5 Normal Plantarflexion (S1) 3+ Fair+ Inversion 5 Normal Eversion (S1) 5 Normal Comments LOB and difficulty trying to complete 20 reps heel raises with B index finger support on wall and pt starts to lean heavily into the wall Right Dorsiflexion (L4) 5 Normal Plantarflexion (S1) 4 Good Inversion 5 Normal Eversion (S1) 5 Normal Comments Mild difficulty completing 20 reps heel raises with B index finger steadying on wall Toe Strength Toe Manual Muscle Testing Left Great Toe Flexion 5 Normal Right Great Toe Extension 5 Normal PT-OP-Q Treatments Start: 01/11/21 08:30 Freq: Status: Active Protocol: Document 01/31/21 10:30 MB (Rec: 01/31/21 11:11 MB [id number]) Cardio Equipment Bicycle (Upright) Duration (Minutes) 10 Resistance 12 Seat Position 8 Therapeutic Exercises Supine Exercises TA SLR Supine Exercise Name D/c this one Standing Exercises trauma release ex Side bilateral Comments Performed B, altered mini squat: hold chair, both arms Manual Therapy Treatment Taping k taping Comments L knee KT black, c strip under patella and B I strips medial and lateral knee for support PT-OP-T Assessment and Plan Start: 01/11/21 08:30 Freq: Status: Active Protocol: Document 01/31/21 10:30 MB (Rec: 01/31/21 11:11 MB [id number]) Physical Therapy Assessment Goals 4 Snf Goal (LTG) Pt will perform progressive HEP with I including pelvic realignment, flexibility, balance, core, breathing and strengthening exercises to decrease pain and improve balance by 03/14/21. 01/24/21: rolling stick self STMs, beutekyo breathing ex, steve stretch, HS stretch, pelvic realignment, trauma release ex 1-8, SLR w/ ER. LTG Duration 8 weeks 3 Project Technician Goal (LTG) Pt will gait train at least 1500 feet in 6 minutes to improve community ambulation by 03/14/21. 01/27/21: progressin ft in 6 min laps in clinic. LTG Duration 8 weeks 2 Snf Goal (LTG) Pt will perform WNLs on a standardized balance test to decrease fall risk by 03/14/21. LTG Duration 8 weeks 1 Snf Goal (LTG) Pt will perform 20 reps B heel raises with only index finger support for balance to improve strength and balance by 03/14/21. 01/27/21: progressing: single leg 10 reps before tires contact BUE on back chair. LTG Duration 8 weeks Assessment Summary Assessment Tried another manner of taping today and pt tolerates well with exercises, gait trial x3 laps around gym and in hallway and with biking. Consider adding only a few more strengthening exercises and manual work. Physical Therapy Plan Frequency and Duration Frequency of Treatment 2x/Week Duration of Treatment 8 weeks Plan of Care Start Date 01/12/21 Plan of Care End Date 03/14/21 Therapeutic Interventions Therapeutic Interventions Balance Training,Canalithic Repositioning,Gait Training, Home Exercise Program,Joint Mobilizations,Manual Therapy, Neuromuscular Re-education, Patient/Caregiver Education, Self-Care/Home Management,Soft Tissue Mobilization,Taping, Therapeutic Activities, Therapeutic Exercises Modalities Cold Pack/Ice Massage,Hot Packs Next Visit Focus/Plan Next Note Type Treatment Note Next Visit Plan Consider core progression in hook lying, hip abduction with band (clam), siting LAQ with band around knees, ankle DF and eversion with theraband, ongoing manual work, add one balance exercise for home, consider balance testing
--- NOTE | 2021-02-07 14:29 | PT.OTN ---
Current Diagnoses Unspecified abnormalities of gait and mobility (02/07/21) Physical Therapy Treatment Note PT-OP-A Visit Information Start: 01/11/21 08:30 Freq: Status: Active Protocol: Document 02/07/21 13:46 MB (Rec: 02/07/21 14:29 MB [id number]) Out-Patient Physical Therapy Visit Information Visit Information Visit Type Treatment Note Visit Note Pre-auth required, [employer] Visit Start Time 13:46 Visit Stop Time 14:27 Total Visit Minutes 41 Visit Number 7 PT-OP-B Current Condition Start: 01/11/21 08:30 Freq: Status: Active Protocol: Document 01/12/21 13:02 MB (Rec: 01/12/21 13:19 MB [id number]) Current Condition History of Current Condition Onset Date 2014 Current Complaints Pain with walking History of Current Condition In 2014, pt fell running upwards on escalator that was moving down. He tripped and hit his left knee cap. He had no fracture. He had 6 monhts of PT and did not get better. He had an MRI and had left knee surgery around 2015. He thinks it was a meniscus repair. He was told that he had OA and patellar tendon damage. Further PMH: depression/ anxiety, HTN, kidney disease, rheumatic fever, hypothyroidism, hyperlipidemia Pt likes to walk everyday and is walking about 2 miles a day . He tried jogging and that was troublesome on his knee. Snorkeling was fun and good on his knee. He tried a regular upright bike and it was troublesome on the knee. Pt would like to be able to walk on trails 3-4 miles. He does not have walking sticks. He tried in the past and it did not work. Pt is sleeping so so. He is taking BP medicine and sometimes he has to get up at night to use the restroom. He occ has to get up and pace and has some depression. Pt reports 4/10 anterior left knee pain that is more distal medial that is worst with walking. Prior Treatments and Tests Left knee x-ray 11/17/20: no trauma but moderately severe medial compartment degenerative knee joint OA is present Treatment Goals Patient/Caregiver Goals To walk 3-4 miles in the yu . PT-OP-C Subjective Start: 01/11/21 08:30 Freq: Status: Active Protocol: Document 02/07/21 13:46 MB (Rec: 02/07/21 14:29 MB [id number]) OP-PT Subjective Patient Comments Patient Comments Pt states that his knee bothered him a little bit with gardening over the weekend. He is alternating his exercises. PT-OP-D Balance Start: 01/11/21 08:30 Freq: Status: Active Protocol: Document 01/12/21 13:02 MB (Rec: 01/12/21 15:50 MB [id number]) Balance Tests Other Other Balance Tests Performed Pt has trouble keeping balance for heel raises LLE, even with B index finger support against wall, shoes are off. He self-corrects LOB PT-OP-F Manual Assessment Start: 01/12/21 15:50 Freq: Status: Active Protocol: Document 01/12/21 13:02 MB (Rec: 01/12/21 15:52 MB [id number]) Manual Assessments Soft Tissue Assessment Soft Tissue Mobility Assessment Pt presents with increased tension left adductor attachment medial knee, left medial distal knee joint is more boggy and larger to palpation than the right, B vastus lateralis tension, soft tissue bump medial posterior left knee and tension over middle proximal part of posterior left knee PT-OP-G Mobility & Gait Start: 01/11/21 08:30 Freq: Status: Active Protocol: Document 01/12/21 13:02 MB (Rec: 01/12/21 15:50 MB [id number]) OP Gait Assessment Gait Gait Assistance Required: Independent Distance (Feet) 50 Able to Maintain Weight Bearing Status Yes During Gait Assistive Devices Assistive Device None Orthotic/Prosthetic Devices or Brace: No Gait Deviations General Gait Pattern Antalgic,Decreased Stride Length,Flexed Trunk Factors Limiting Gait Function Factors Limiting Gait Function Limited Range of Motion,Pain, Poor Balance Comments Gait Comments Pt presents with slow and careful gait, wide JOSE, decreased step length, left rearfoot appears occ unstable with weight acceptance and he has left LE anatomical changes compared to the right, see postural comments PT-OP-J Posture/Palpation/Skin Start: 01/11/21 08:30 Freq: Status: Active Protocol: Document 01/12/21 13:02 MB (Rec: 01/12/21 15:50 MB [id number]) Posture Evaluation Comments Posture Comments Standing bare foot: soft tissue bump medial posterior left knee and lateral distal femur appears lateral versus bony changes of left knee. Left tibial torsion altered compared to the right and more overpronation left foot and pes planus compared to the right. B rounded shoulders, decreased lumbar lordosis, right iliac crest mildly higher than the left and pt walks with left leg functionally longer than the right. PT-OP-K Range of Motion Start: 01/11/21 08:30 Freq: Status: Active Protocol: Document 01/12/21 13:02 MB (Rec: 01/12/21 15:50 MB [id number]) Knee Goniometric Range of Motion Knee ROM Limitations Comments Supine AROM right knee 0-130 deg and left knee 0-120 deg. PT-OP-M Strength Start: 01/11/21 08:30 Freq: Status: Active Protocol: Document 01/12/21 13:02 MB (Rec: 01/12/21 15:50 MB [id number]) Hip Strength Hip Manual Muscle Testing Left Flexion (L2) 5 Normal Abduction 5 Normal Adduction 5 Normal Right Flexion (L2) 5 Normal Abduction 5 Normal Adduction 5 Normal Knee Strength Knee Manual Muscle Testing Left Flexion (S2) 5 Normal Extension (L3) 5 Normal Right Flexion (S2) 5 Normal Extension (L3) 5 Normal Ankle/Foot Strength Ankle and Foot Manual Muscle Testing Left Dorsiflexion (L4) 5 Normal Plantarflexion (S1) 3+ Fair+ Inversion 5 Normal Eversion (S1) 5 Normal Comments LOB and difficulty trying to complete 20 reps heel raises with B index finger support on wall and pt starts to lean heavily into the wall Right Dorsiflexion (L4) 5 Normal Plantarflexion (S1) 4 Good Inversion 5 Normal Eversion (S1) 5 Normal Comments Mild difficulty completing 20 reps heel raises with B index finger steadying on wall Toe Strength Toe Manual Muscle Testing Left Great Toe Flexion 5 Normal Right Great Toe Extension 5 Normal PT-OP-Q Treatments Start: 01/11/21 08:30 Freq: Status: Active Protocol: Document 02/07/21 13:46 MB (Rec: 02/07/21 14:29 MB [id number]) Cardio Equipment Bicycle (Upright) Duration (Minutes) 8 Resistance 12 Seat Position 9 Therapeutic Exercises Supine Exercises Bridging with band Side bilateral Reps/Minutes Level 2 band around knees Comments Extended hold with some ER/ abduction for hip Hip abduction with theraband Side bilateral Equipment Used Level 2 band around knees Comments Abd drawing in first, slow movement Core progression Supine Exercise Name Abdominal drawing in, pelvic tilt, HS, mini march Side bilateral Comments 10 reps, cues for form Manual Therapy Treatment Other Other Manual Treatments STM left rectus femoris and vastus lateralis and MWM with pt performing active HS, MWM for TFL with active hip ER and IR, STM left adductor and ed pt how he can perform at home PT-OP-T Assessment and Plan Start: 01/11/21 08:30 Freq: Status: Active Protocol: Document 02/07/21 13:46 MB (Rec: 02/07/21 14:29 MB [id number]) Physical Therapy Assessment Goals 4 Custodial Goal (LTG) Pt will perform progressive HEP with I including pelvic realignment, flexibility, balance, core, breathing and strengthening exercises to decrease pain and improve balance by 03/14/21. 01/24/21: rolling stick self STMs, beutekyo breathing ex, steve stretch, HS stretch, pelvic realignment, trauma release ex 1-8, SLR w/ ER. LTG Duration 8 weeks 3 Custodial Goal (LTG) Pt will gait train at least 1500 feet in 6 minutes to improve community ambulation by 03/14/21. 01/27/21: progressin ft in 6 min laps in clinic. LTG Duration 8 weeks 2 Custodial Goal (LTG) Pt will perform WNLs on a standardized balance test to decrease fall risk by 03/14/21. LTG Duration 8 weeks 1 Custodial Goal (LTG) Pt will perform 20 reps B heel raises with only index finger support for balance to improve strength and balance by 03/14/21. 01/27/21: progressing: single leg 10 reps before tires contact BUE on back chair. LTG Duration 8 weeks Assessment Summary Assessment Progressed core and hip strengthening today in hook lying and pt responds well. Pt con't with tension left adductors and he will benefit from ongoing manual work. Con' t per plan below. Physical Therapy Plan Frequency and Duration Frequency of Treatment 2x/Week Duration of Treatment 8 weeks Plan of Care Start Date 01/12/21 Plan of Care End Date 03/14/21 Therapeutic Interventions Therapeutic Interventions Balance Training,Canalithic Repositioning,Gait Training, Home Exercise Program,Joint Mobilizations,Manual Therapy, Neuromuscular Re-education, Patient/Caregiver Education, Self-Care/Home Management,Soft Tissue Mobilization,Taping, Therapeutic Activities, Therapeutic Exercises Modalities Cold Pack/Ice Massage,Hot Packs Next Visit Focus/Plan Next Note Type Treatment Note Next Visit Plan Consider siting LAQ with band around knees, ankle DF and eversion with theraband, ongoing manual work, add one balance exercise for home, consider balance testing
--- NOTE | 2021-02-10 13:45 | PT.OTN ---
Current Diagnoses Unspecified abnormalities of gait and mobility (02/10/21) Physical Therapy Treatment Note PT-OP-A Visit Information Start: 01/11/21 08:30 Freq: Status: Active Protocol: Document 02/10/21 13:03 SP (Rec: 02/10/21 13:48 SP [id number]) Out-Patient Physical Therapy Visit Information Visit Information Visit Type Treatment Note Visit Note Pre-auth required, [employer] Visit Start Time 13:03 Visit Stop Time 13:45 Total Visit Minutes 42 Visit Number 8 Number of MILIT[employer] EXCHANGE WIRELESS MANAGER Visits 1 Evaluation Information Evaluation Date 01/12/21 PT-OP-B Current Condition Start: 01/11/21 08:30 Freq: Status: Active Protocol: Document 01/12/21 13:02 MB (Rec: 01/12/21 13:19 MB [id number]) Current Condition History of Current Condition Onset Date 2014 Current Complaints Pain with walking History of Current Condition In 2014, pt fell running upwards on escalator that was moving down. He tripped and hit his left knee cap. He had no fracture. He had 6 monhts of PT and did not get better. He had an MRI and had left knee surgery around 2015. He thinks it was a meniscus repair. He was told that he had OA and patellar tendon damage. Further PMH: depression/ anxiety, HTN, kidney disease, rheumatic fever, hypothyroidism, hyperlipidemia Pt likes to walk everyday and is walking about 2 miles a day . He tried jogging and that was troublesome on his knee. Snorkeling was fun and good on his knee. He tried a regular upright bike and it was troublesome on the knee. Pt would like to be able to walk on trails 3-4 miles. He does not have walking sticks. He tried in the past and it did not work. Pt is sleeping so so. He is taking BP medicine and sometimes he has to get up at night to use the restroom. He occ has to get up and pace and has some depression. Pt reports 4/10 anterior left knee pain that is more distal medial that is worst with walking. Prior Treatments and Tests Left knee x-ray 11/17/20: no trauma but moderately severe medial compartment degenerative knee joint OA is present Treatment Goals Patient/Caregiver Goals To walk 3-4 miles in the yu . PT-OP-C Subjective Start: 01/11/21 08:30 Freq: Status: Active Protocol: Document 02/10/21 13:03 SP (Rec: 02/10/21 13:48 SP [id number]) OP-PT Subjective Patient Comments Patient Comments Pt states doing well with the exercises. Went for a walk 1/4 -1/2 miles yesterday and discouraged by increased L knee pain worse than before cortizone shot but starts to improve when returned home, still sore today but also weeding in garden on large scale. PT-OP-D Balance Start: 01/11/21 08:30 Freq: Status: Active Protocol: Document 01/12/21 13:02 MB (Rec: 01/12/21 15:50 MB [id number]) Balance Tests Other Other Balance Tests Performed Pt has trouble keeping balance for heel raises LLE, even with B index finger support against wall, shoes are off. He self-corrects LOB PT-OP-F Manual Assessment Start: 01/12/21 15:50 Freq: Status: Active Protocol: Document 01/12/21 13:02 MB (Rec: 01/12/21 15:52 MB [id number]) Manual Assessments Soft Tissue Assessment Soft Tissue Mobility Assessment Pt presents with increased tension left adductor attachment medial knee, left medial distal knee joint is more boggy and larger to palpation than the right, B vastus lateralis tension, soft tissue bump medial posterior left knee and tension over middle proximal part of posterior left knee PT-OP-G Mobility & Gait Start: 01/11/21 08:30 Freq: Status: Active Protocol: Document 01/12/21 13:02 MB (Rec: 01/12/21 15:50 MB [id number]) OP Gait Assessment Gait Gait Assistance Required: Independent Distance (Feet) 50 Able to Maintain Weight Bearing Status Yes During Gait Assistive Devices Assistive Device None Orthotic/Prosthetic Devices or Brace: No Gait Deviations General Gait Pattern Antalgic,Decreased Stride Length,Flexed Trunk Factors Limiting Gait Function Factors Limiting Gait Function Limited Range of Motion,Pain, Poor Balance Comments Gait Comments Pt presents with slow and careful gait, wide JOSE, decreased step length, left rearfoot appears occ unstable with weight acceptance and he has left LE anatomical changes compared to the right, see postural comments PT-OP-J Posture/Palpation/Skin Start: 01/11/21 08:30 Freq: Status: Active Protocol: Document 01/12/21 13:02 MB (Rec: 01/12/21 15:50 MB [id number]) Posture Evaluation Comments Posture Comments Standing bare foot: soft tissue bump medial posterior left knee and lateral distal femur appears lateral versus bony changes of left knee. Left tibial torsion altered compared to the right and more overpronation left foot and pes planus compared to the right. B rounded shoulders, decreased lumbar lordosis, right iliac crest mildly higher than the left and pt walks with left leg functionally longer than the right. PT-OP-K Range of Motion Start: 01/11/21 08:30 Freq: Status: Active Protocol: Document 01/12/21 13:02 MB (Rec: 01/12/21 15:50 MB [id number]) Knee Goniometric Range of Motion Knee ROM Limitations Comments Supine AROM right knee 0-130 deg and left knee 0-120 deg. PT-OP-M Strength Start: 01/11/21 08:30 Freq: Status: Active Protocol: Document 01/12/21 13:02 MB (Rec: 01/12/21 15:50 MB [id number]) Hip Strength Hip Manual Muscle Testing Left Flexion (L2) 5 Normal Abduction 5 Normal Adduction 5 Normal Right Flexion (L2) 5 Normal Abduction 5 Normal Adduction 5 Normal Knee Strength Knee Manual Muscle Testing Left Flexion (S2) 5 Normal Extension (L3) 5 Normal Right Flexion (S2) 5 Normal Extension (L3) 5 Normal Ankle/Foot Strength Ankle and Foot Manual Muscle Testing Left Dorsiflexion (L4) 5 Normal Plantarflexion (S1) 3+ Fair+ Inversion 5 Normal Eversion (S1) 5 Normal Comments LOB and difficulty trying to complete 20 reps heel raises with B index finger support on wall and pt starts to lean heavily into the wall Right Dorsiflexion (L4) 5 Normal Plantarflexion (S1) 4 Good Inversion 5 Normal Eversion (S1) 5 Normal Comments Mild difficulty completing 20 reps heel raises with B index finger steadying on wall Toe Strength Toe Manual Muscle Testing Left Great Toe Flexion 5 Normal Right Great Toe Extension 5 Normal PT-OP-Q Treatments Start: 01/11/21 08:30 Freq: Status: Active Protocol: Document 02/10/21 13:03 SP (Rec: 02/10/21 13:48 SP [id number]) Cardio Equipment Bicycle (Upright) Duration (Minutes) 10 Resistance 12 Seat Position 9 Other miles - knee 2.83 miles, loosened up as time peddling Gym Equipment Shuttle Recovery Unlateral squat Details alternate BLE Resistance 37# Shuttle Recovery Platform Stable Reps/Time x10- good knee alignment and > 90 deg with cues posterior chain Bilat squats Resistance 75# Shuttle Recovery Platform Stable Reps/Time x20 Therapeutic Exercises Sitting Exercises ankle EV Side bilateral Equipment Used Tb #2 loop Reps/Minutes x10 Comments good pain free, cued x1 for neutral knee alignment LAQ Side left Equipment Used Tb loop#2 Reps/Minutes x10 Comments good quad facilitation, pain free Rolling pin STM Sitting Exercise Name decrease tightness in quad, ITB, adductor, calf post ex Side bilateral Comments both w/ more focus on the left good saw motion Standing Exercises TKE Side left Equipment Used Tb #2 Reps/Minutes x10 Comments good quad facilitation, pain free PT-OP-T Assessment and Plan Start: 01/11/21 08:30 Freq: Status: Active Protocol: Document 02/10/21 13:03 SP (Rec: 02/10/21 13:48 SP [id number]) Physical Therapy Assessment Goals 4 Usp Goal (LTG) Pt will perform progressive HEP with I including pelvic realignment, flexibility, balance, core, breathing and strengthening exercises to decrease pain and improve balance by 03/14/21. 01/24/21: rolling stick self STMs, beutekyo breathing ex, steve stretch, HS stretch, pelvic realignment, trauma release ex 1-8, SLR w/ ER. LTG Duration 8 weeks 3 New Car Make Ready Worker Goal (LTG) Pt will gait train at least 1500 feet in 6 minutes to improve community ambulation by 03/14/21. 01/27/21: progressin ft in 6 min laps in clinic. LTG Duration 8 weeks 2 Usp Goal (LTG) Pt will perform WNLs on a standardized balance test to decrease fall risk by 03/14/21. LTG Duration 8 weeks 1 Usp Goal (LTG) Pt will perform 20 reps B heel raises with only index finger support for balance to improve strength and balance by 03/14/21. 01/27/21: progressing: single leg 10 reps before tires contact BUE on back chair. LTG Duration 8 weeks Assessment Summary Assessment Pt responded well to added HEP : TKE, LAQ, L ankle EV, shuttle recovery, cued for knee alignment and push into end feel extension. Pt reported thigh muscle tired and little tight but improve post self STMs rolling stick. Pt left demonstrating antalgic gait wt shift to R during LLE swing through but no pain, tired. Physical Therapy Plan Frequency and Duration Frequency of Treatment 2x/Week Duration of Treatment 8 weeks Plan of Care Start Date 01/12/21 Plan of Care End Date 03/14/21 Therapeutic Interventions Therapeutic Interventions Balance Training,Canalithic Repositioning,Gait Training, Home Exercise Program,Joint Mobilizations,Manual Therapy, Neuromuscular Re-education, Patient/Caregiver Education, Self-Care/Home Management,Soft Tissue Mobilization,Taping, Therapeutic Activities, Therapeutic Exercises Modalities Cold Pack/Ice Massage,Hot Packs Next Visit Focus/Plan Next Note Type Treatment Note Next Visit Plan Assess response to: siting LAQ with band around ankles, ankle DF and eversion with theraband Next tx: work on gait and balance to improve endurance and strength to take walks outside. Continue POC: ongoing manual work, add one balance exercise for home, consider balance testing
--- NOTE | 2021-02-15 14:32 | PT.OTN ---
Current Diagnoses Unspecified abnormalities of gait and mobility (02/15/21) Physical Therapy Treatment Note PT-OP-A Visit Information Start: 01/11/21 08:30 Freq: Status: Active Protocol: Document 02/15/21 13:00 MB (Rec: 02/15/21 13:36 MB [id number]) Out-Patient Physical Therapy Visit Information Visit Information Visit Type Treatment Note Visit Note Pre-auth required, [employer] Visit Start Time 13:00 Visit Stop Time 13:38 Total Visit Minutes 38 Visit Number 9 Number of SOUND MIXER Visits 0 PT-OP-B Current Condition Start: 01/11/21 08:30 Freq: Status: Active Protocol: Document 01/12/21 13:02 MB (Rec: 01/12/21 13:19 MB [id number]) Current Condition History of Current Condition Onset Date 2014 Current Complaints Pain with walking History of Current Condition In 2014, pt fell running upwards on escalator that was moving down. He tripped and hit his left knee cap. He had no fracture. He had 6 monhts of PT and did not get better. He had an MRI and had left knee surgery around 2015. He thinks it was a meniscus repair. He was told that he had OA and patellar tendon damage. Further PMH: depression/ anxiety, HTN, kidney disease, rheumatic fever, hypothyroidism, hyperlipidemia Pt likes to walk everyday and is walking about 2 miles a day . He tried jogging and that was troublesome on his knee. Snorkeling was fun and good on his knee. He tried a regular upright bike and it was troublesome on the knee. Pt would like to be able to walk on trails 3-4 miles. He does not have walking sticks. He tried in the past and it did not work. Pt is sleeping so so. He is taking BP medicine and sometimes he has to get up at night to use the restroom. He occ has to get up and pace and has some depression. Pt reports 4/10 anterior left knee pain that is more distal medial that is worst with walking. Prior Treatments and Tests Left knee x-ray 11/17/20: no trauma but moderately severe medial compartment degenerative knee joint OA is present Treatment Goals Patient/Caregiver Goals To walk 3-4 miles in the yu . PT-OP-C Subjective Start: 01/11/21 08:30 Freq: Status: Active Protocol: Document 02/15/21 13:00 MB (Rec: 02/15/21 13:36 MB [id number]) OP-PT Subjective Patient Comments Patient Comments Pt went for a walk the day before last treatment and his knee hurt as bad as it ever had, even before the shot. PT-OP-D Balance Start: 01/11/21 08:30 Freq: Status: Active Protocol: Document 01/12/21 13:02 MB (Rec: 01/12/21 15:50 MB [id number]) Balance Tests Other Other Balance Tests Performed Pt has trouble keeping balance for heel raises LLE, even with B index finger support against wall, shoes are off. He self-corrects LOB PT-OP-F Manual Assessment Start: 01/12/21 15:50 Freq: Status: Active Protocol: Document 01/12/21 13:02 MB (Rec: 01/12/21 15:52 MB [id number]) Manual Assessments Soft Tissue Assessment Soft Tissue Mobility Assessment Pt presents with increased tension left adductor attachment medial knee, left medial distal knee joint is more boggy and larger to palpation than the right, B vastus lateralis tension, soft tissue bump medial posterior left knee and tension over middle proximal part of posterior left knee PT-OP-G Mobility & Gait Start: 01/11/21 08:30 Freq: Status: Active Protocol: Document 01/12/21 13:02 MB (Rec: 01/12/21 15:50 MB [id number]) OP Gait Assessment Gait Gait Assistance Required: Independent Distance (Feet) 50 Able to Maintain Weight Bearing Status Yes During Gait Assistive Devices Assistive Device None Orthotic/Prosthetic Devices or Brace: No Gait Deviations General Gait Pattern Antalgic,Decreased Stride Length,Flexed Trunk Factors Limiting Gait Function Factors Limiting Gait Function Limited Range of Motion,Pain, Poor Balance Comments Gait Comments Pt presents with slow and careful gait, wide JOSE, decreased step length, left rearfoot appears occ unstable with weight acceptance and he has left LE anatomical changes compared to the right, see postural comments PT-OP-J Posture/Palpation/Skin Start: 01/11/21 08:30 Freq: Status: Active Protocol: Document 01/12/21 13:02 MB (Rec: 01/12/21 15:50 MB [id number]) Posture Evaluation Comments Posture Comments Standing bare foot: soft tissue bump medial posterior left knee and lateral distal femur appears lateral versus bony changes of left knee. Left tibial torsion altered compared to the right and more overpronation left foot and pes planus compared to the right. B rounded shoulders, decreased lumbar lordosis, right iliac crest mildly higher than the left and pt walks with left leg functionally longer than the right. PT-OP-K Range of Motion Start: 01/11/21 08:30 Freq: Status: Active Protocol: Document 01/12/21 13:02 MB (Rec: 01/12/21 15:50 MB [id number]) Knee Goniometric Range of Motion Knee ROM Limitations Comments Supine AROM right knee 0-130 deg and left knee 0-120 deg. PT-OP-M Strength Start: 01/11/21 08:30 Freq: Status: Active Protocol: Document 01/12/21 13:02 MB (Rec: 01/12/21 15:50 MB [id number]) Hip Strength Hip Manual Muscle Testing Left Flexion (L2) 5 Normal Abduction 5 Normal Adduction 5 Normal Right Flexion (L2) 5 Normal Abduction 5 Normal Adduction 5 Normal Knee Strength Knee Manual Muscle Testing Left Flexion (S2) 5 Normal Extension (L3) 5 Normal Right Flexion (S2) 5 Normal Extension (L3) 5 Normal Ankle/Foot Strength Ankle and Foot Manual Muscle Testing Left Dorsiflexion (L4) 5 Normal Plantarflexion (S1) 3+ Fair+ Inversion 5 Normal Eversion (S1) 5 Normal Comments LOB and difficulty trying to complete 20 reps heel raises with B index finger support on wall and pt starts to lean heavily into the wall Right Dorsiflexion (L4) 5 Normal Plantarflexion (S1) 4 Good Inversion 5 Normal Eversion (S1) 5 Normal Comments Mild difficulty completing 20 reps heel raises with B index finger steadying on wall Toe Strength Toe Manual Muscle Testing Left Great Toe Flexion 5 Normal Right Great Toe Extension 5 Normal PT-OP-Q Treatments Start: 01/11/21 08:30 Freq: Status: Active Protocol: Document 02/15/21 13:00 MB (Rec: 02/15/21 13:36 MB [id number]) Cardio Equipment Bicycle (Upright) Duration (Minutes) 10 Resistance 12 Seat Position 9 Therapeutic Exercises Supine Exercises Aron stretch Side bilateral Comments 45 sec Standing Exercises trauma release ex Comments Performed wall squat today and heel raises Other Exercises Reviewed HEP Comments Performed today in preparation for d/c Gait Training Gait Activity 6MWT Comments See goals for 6MWT results today, he met goal and for gait comments, his gait pattern is similar throughout treatment today and not just with 6MWT PT-OP-T Assessment and Plan Start: 01/11/21 08:30 Freq: Status: Active Protocol: Document 02/15/21 13:00 MB (Rec: 02/15/21 13:36 MB [id number]) Physical Therapy Assessment Goals 4 Group Social Worker Goal (LTG) Pt will perform progressive HEP with I including pelvic realignment, flexibility, balance, core, breathing and strengthening exercises to decrease pain and improve balance by 03/14/21. 02/15/21: Pt is performing hip, knee, and ankle strengthening exercises with theraband, wall squat, hamstring stretch, Aron stretch, Buteyko breathing, pelvic realignment exercises, rolling pin massage LTG Duration Met 3 Group Social Worker Goal (LTG) Pt will gait train at least 1500 feet in 6 minutes to improve community ambulation by 03/14/21. 02/15/21: Pt gait trains 1607 feet in 6 minutes. His gait is antalgic, with wide JOSE, less muscle mass left PFs compared to the right and bony changes lateral knee LTG Duration Met 2 Group Social Worker Goal (LTG) Pt will perform WNLs on a standardized balance test to decrease fall risk by 03/14/21. 02/15/21: LOB with heel raises on he left with one index finger support after 14 reps LTG Duration Progressed 1 Group Social Worker Goal (LTG) Pt will perform 20 reps B heel raises with only index finger support for balance to improve strength and balance by 03/14/21. 02/15/21: Pt can perform 20 reps on RLE and 14 reps on LLE LTG Duration Progressed Assessment Summary Assessment Pt has maximized PT potential. He met gait and HEP goals. He con't with pain, LLE weakness and imbalance. He has progressive degnerative changes per diagnostics and visibly, history of left knee trauma and arthroscopy, pain with WB and increased gait distances, and given his age, PT wonders if work-up with orthopedic surgeon for LTKR is appropriate. Pt is very active and would like to con't to be able to get out and hike and enjoy the outdoors which he can only do at a limited capacity right know d/ t left knee pain. He would like to con't to work on his overall health which benefits from this activity. Will d/c PT and pt will con't with PT exercises. Physical Therapy Plan Other Referrals/Consults Referrals/Consults Recommended Orthopedic surgeon consult in setting of progressive degenerative changes in 65 y/o male, possible work-up for L TKR
== END 2021-02-15 14:37 | disposition home or self-care (01) ==
LOC: PHYS 13:00
PROVIDERS: PCP Student in an Organized Health Care Education/Training Program; Referring Provider Student in an Organized Health Care Education/Training Program; Visit Provider Student in an Organized Health Care Education/Training Program
DX: R26.9 Unspecified abnormalities of gait and mobility (principal)
CPT/HCPCS: 97110; 97116; 97140; 97161

== ENCOUNTER → 2021-03-02 08:21 | Outpatient (CLI) | payer OTHER, SELFPAY ==
[2021-03-02 11:14] LABS: COVID19 -Nasal RAPID Negative (Negative)
== END ==
PROVIDERS: PCP Student in an Organized Health Care Education/Training Program; Visit Provider Nurse Practitioner Family
DX: Z20.822 Contact with and (suspected) exposure to COVID-19 (principal)
CPT/HCPCS: 87635; C9803

== ENCOUNTER → 2021-03-04 12:42 | Day surgery (SDC) | payer OTHER, SELFPAY ==
--- NOTE | 2021-03-04 12:06 | P.HP_ITS ---
History of Present Illness History of Present Illness Date Patient Seen: 03/04/21 Chief complaint: SDC Narrative: 65 year old male comes in today for consideration of a screening colonoscopy. There have been no lower GI symptoms suggesting disease such as change in bowel habits, bleeding, abdominal pain or anemia. There's been a family history of colon cancer and colon polyps on his paternal side. Overall health issues have been stable, including no major cardiac events for at least 6 weeks. PCP: Dr. Bearden Past Medical History: Depression/anxiety HTN Kidney disease Rheumatic fever hypothyroidism Hyperlipidemia Chronic knee disease stage IIIa Past Surgical History: Left knee meniscus tear 2014 Family History: Father: at 86- stroke, HTN Mother: at 92, fairly healthy Siblings: HTN, mental illness, prostate Paternal side: colon cancer and polyps Social History: Marital Status: Single Children: 0 Occupation: Retired residential property manager Household Members: none Education: Grad School Large family, Synagogue. 8 brothers and 1 sister. Sister is an CRO, lives in [place]. He has 1 brother in [facility]. The rest of his family in the [facility]. 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 Lived on [place] at that time. Moved to [place] just prior to the coronavirus pandemic. Took care of his mother for several years before she . She ended up in an assisting living/memory unit. Alcohol drinks/day: <1/day >5/day in last 3 mos: yes Fall Risk: one fall in past year-no injury Meds Home Medications and Allergies Home Medications Medication Instructions Recorded Confirmed Type levothyroxine 75 mcg PO DAILY 03/03/21 03/04/21 History lisinopril 10 mg PO DAILY 03/03/21 03/04/21 History sertraline 150 mg PO DAILY 03/03/21 03/04/21 History Allergies Allergy/AdvReac Type Severity Reaction Status Date / Time No Known Drug Allergies Allergy Verified 03/03/21 14:54 Review of Systems Review of Systems ROS: Yes All systems reviewed with the patient and are negative except as otherwise documented Exam Narrative Exam Narrative: GENERAL: Alert and oriented, appearing stated age and in no acute distress. HEENT: Head normocephalic/atraumatic. Pupils equal, round, and reactive to light and accomodation. Extraocular muscles intact. Tympanic membranes clear. Nasal mucosa moist, septum midline. Oral mucosa moist, no lesions. Neck soft and supple, no lymphadenopathy. LUNGS: Clear to ausculation bilaterally, no wheezes, rhonchi or rales. CV: Normal S1 and S2 with regular rate and rhythm, no audible murmurs, rubs or gallops. ABDOMEN: Soft, non-tender, non-distended, no organomegaly. Positive bowel sounds. EXTREMITIES: No clubbing, cyanosis, or edema. NEURO: Cranial nerves II through XII grossly intact, no focal deficits. PSYCH: Alert and oriented x 3. SKIN: No concerning lesions. Assessment & Plan Assessment & Plan narrative: 1. Family history of colon cancer 2. Screening for colon cancer Plan for colonoscopy. The nature and character of the procedure as well as anticipated results were discussed. The possibility of not completing the procedure was also discussed. Possible complications including aspiration pneumonia, bleeding, perforation and reaction to medications either for sedation or preparation and missed lesions were discussed. Questions were answered and proceeding to the colonoscopy was elected. Informed consent signed. I sincerely appreciate the referral allowing me to participate in this patient's care. Please contact me with any questions or concerns.
--- NOTE | 2021-03-04 12:07 | PM.OP.ENDO ---
Operative Date/Time/Diagnoses Date of procedure: 03/04/21 Procedure Notes SCOAP/Timeout: 1:48 p.m. Procedure in detail: ENDOSCOPIST: Mary Alice Bearden MD Sedation RN: Meeta Carlos RN Sedation start time: 1:49 p.m. Sedation end time: 2:06 p.m. PROCEDURE: Colonoscopy INDICATIONS: 1. Family history of colon cancer 2. Screening for colon cancer MEDICATION: Levsin 0.125 mg sublingual, incremental doses of Versed and fentanyl until appropriate level sedation achieved. ASA CLASS: 2 CECAL WITHDRAWAL TIME: 7 minutes COMPLICATIONS: None. EXTENT OF PROCEDURE: Cecum. QUALITY OF PREP: Good with portions of liquid stool. PROCEDURE: Prior to insertion of the colonoscope, a digital rectal examination was accomplished with circumferential palpation of the distal rectal mucosa without significant findings being noted. The high-definition colonoscope was passed into the rectum in the usual fashion and advanced over to the cecum without difficulty. The ileocecal valve, appendiceal stoma, and medial wall all could be inspected and no abnormalities were seen. ASCENDING COLON: As the colonoscope was withdrawn, care was taken to expose and inspect the haustral folds and no abnormalities were seen. HEPATIC FLEXURE: Normal, no polyps, diverticula or other abnormalities. TRANSVERSE COLON: Normal, no polyps, diverticula or other abnormalities. DESCENDING COLON: Normal, no polyps, diverticula or other abnormalities. SIGMOID COLON: Normal, no polyps, diverticula or other abnormalities. RECTUM: Normal. J maneuver was produced. There was no significant perianal disease. The J maneuver was broken. The remainder of the rectum was inspected and there was minor external hemorrhoid disease. The scope was withdrawn. IMPRESSION: 1. Normal colonoscopy 2. External hemorrhoids, minor PLAN: 1. Repeat colonoscopy 5 years. The possibility of a missed lesion including a malignancy has been discussed with the patient previously. Potential alarm symptoms have been discussed and should be reported immediately.
[2021-03-04 13:07] VITALS: BP 141/89; PULSE 78; RESP 16; TEMP 36.6; O2SAT 98; BMI 28.3
[2021-03-04] MEDS: LACTATED RINGERS 1,000 ML 200 ML IV (13:18)
[2021-03-04] MEDS: HYOSCYAMINE 0.125 MG TABLET PO (13:18)
[2021-03-04] MEDS: fentaNYL 250 MCG/5 ML INJ IV (13:55)
[2021-03-04] MEDS: MIDAZOLAM 5 MG/5 ML VIAL IV (13:55)
[2021-03-04 14:11] VITALS: BP 117/69; PULSE 73; RESP 17; TEMP 36.8; O2SAT 93
[2021-03-04 14:16] VITALS: BP 111/83; PULSE 75; RESP 13; O2SAT 93
[2021-03-04 14:22] VITALS: BP 108/75; PULSE 70; RESP 14; TEMP 36.2; O2SAT 96
[2021-03-04 14:43] VITALS: BP 120/77; PULSE 65; RESP 16; O2SAT 98
== END | disposition home or self-care (01) ==
PROVIDERS: PCP Student in an Organized Health Care Education/Training Program; Referring Provider Student in an Organized Health Care Education/Training Program; Visit Provider Student in an Organized Health Care Education/Training Program
PROC: 0DJD8ZZ Inspection of Lower Intestinal Tract, Via Natural or Artificial Opening Endoscopic (ICD-10-PCS; CPT 45378; principal; 2021-03-04 13:45)
DX: Z12.11 Encounter for screening for malignant neoplasm of colon (principal); Z80.0 Family history of malignant neoplasm of digestive organs; K64.4 Residual hemorrhoidal skin tags
CPT/HCPCS: G0105; J2250; J3010

== ENCOUNTER 2021-10-12 10:30 | Outpatient (RCR) | payer OTHER, SELFPAY ==
--- NOTE | 2021-07-07 16:21 | PT.OPPOC ---
Physical, Occupational & Speech Therapy At [facility] Current Diagnoses Unilateral primary osteoarthritis, left knee (07/07/21) Difficulty in walking, not elsewhere classified (07/07/21) Presence of left artificial knee joint (07/07/21) Visit Care Team Role Provider Type Mary Alice Bearden MD Family Provider Physician Primary Care Provider Specialty: Family Practice Address: [address] [place] [address], [place], [address] Email: [email or web address] Radha Otero MD Attending Provider Physician Referring Provider Specialty: Orthopedic Surgery Address: [address] [place] [address], [place], [address] Email: [email or web address] Plan Of Care PT-OP-T Assessment and Plan Start: 07/07/21 13:34 Freq: Status: Active Protocol: Document 07/07/21 14:30 AW (Rec: 07/10/21 16:20 AW [id number]) Physical Therapy Assessment Rehab Potential Rehabilitation Potential Good Evaluation Complexity Number of Personal Factors/Comorbidities 1-2 Number of Body Systems Impaired 1-2 Clinical Presentation at Evaluation Evolving Impairments Impairments Activity Tolerance,Balance, Functional Activities, Functional Mobility,Gait,Pain, Posture,ROM,Soft Tissue Mobility Goals Four Impairment balance Box Truck Owner Operator Goal (LTG) Pt will perform WNL on standardized balance test as a measure of decreased falls risk. LTG Duration 2 months post surgery - 09/24/21 Three Impairment gait Short Term Goal (STG) Pt will walk 1500 feet or greater on 6MWT for improved community ambulation. STG Duration 1 month post surgery - 08/24/21 Box Truck Owner Operator Goal (LTG) Pt will walk 1650 feet or greater on 6MWT for confucianist of pre-surgical level of mobility. LTG Duration 2 months post surgery - 09/24/21 Two Impairment ROM Short Term Goal (STG) Pt will improve AROM left knee to 0-110 or greater for improved functional gait. STG Duration 1 month post surgery - 08/24/21 Halfway Goal (LTG) Pt will improve AROM left knee to 0-125 or greater for independent stair navigation. LTG Duration 2 months post surgery - 09/24/21 One Impairment HEP Box Truck Owner Operator Goal (LTG) Pt will perform progressive HEP independently including flexibility, balance, and strengthening exercises to decrease pain and improve gait quality LTG Duration 2 months post surgery - 09/24/21 Assessment Summary Assessment Germain attends outpatient physical therapy in anticipation of left knee medial compartment arthroplasty on 07/25/21. Knee pain has limited his ability to walk more than a few miles on pavement on most days and more than a few blocks on worse days. Pt will be re- assessed after surgery and is expected to benefit from PT to address flexibility, gait, balance, and strength impairments. Physical Therapy Plan Frequency and Duration Frequency of Treatment 2x/Week Duration of Treatment 2 months following surgery Plan of Care Start Date 07/07/21 Plan of Care End Date 09/24/21 Therapeutic Interventions Therapeutic Interventions Balance Training,Gait Training ,Home Exercise Program,Joint Mobilizations,Manual Therapy, Neuromuscular Re-education, Orthotic/Prosthetic Management ,Patient/Caregiver Education, Self-Care/Home Management,Soft Tissue Mobilization,Taping, Therapeutic Activities, Therapeutic Exercises Modalities Cold Pack/Ice Massage,Hot Packs Next Visit Focus/Plan Next Note Type Treatment Note Next Visit Plan Re-assess ROM, strength, gait following surgery. Initiate ROM and strength training. Plan of Care Dates Plan of Care Start Date 07/07/21 Plan of Care End Date 09/24/21 Electronically Signed by: Meggan Fuentes, PT 07/10/21 [id number] Please Sign and Return: I have reviewed this Plan of Care and certify that the skilled therapy services above are required to meet the patient?s needs. Physician Signature Date Printed Name and Credentials Clinical Instructor Signature Printed Name and Credentials
--- NOTE | 2021-07-07 16:21 | PT.OIE ---
Current Diagnoses Unilateral primary osteoarthritis, left knee (07/07/21) Difficulty in walking, not elsewhere classified (07/07/21) Presence of left artificial knee joint (07/07/21) Visit Care Team Role Provider Type Mary Alice Bearden MD Family Provider Physician Primary Care Provider Specialty: Family Practice Address: [address] [place] [address], [place], [address] Email: [email or web address] Radha Otero MD Attending Provider Physician Referring Provider Specialty: Orthopedic Surgery Address: [address] [place] [address], [id number] Email: [email or web address] Initial Evaluation PT-OP-A Visit Information Start: 07/07/21 13:34 Freq: Status: Active Protocol: Document 07/07/21 14:30 AW (Rec: 07/07/21 16:27 AW [email or web address]) Out-Patient Physical Therapy Visit Information Visit Information Visit Type Initial Evaluation Visit Start Time 13:45 Visit Stop Time 14:30 Total Visit Minutes 45 Visit Number 1 Number of MOLDING SANDER Visits 0 Evaluation Information Evaluation Date 07/07/21 PT-OP-B Current Condition Start: 07/07/21 13:34 Freq: Status: Active Protocol: Document 07/07/21 14:30 AW (Rec: 07/07/21 13:37 AW [email or web address]) Current Condition History of Current Condition Onset Date 2014 Current Complaints left knee pain History of Current Condition Pt injured his knee in 2014 going up on an escalator that was moving down. He had no fracture but did not improve with six months of PT. He had MRI which suggested meniscus tear and surgery to repair it. He now walks daily up to two miles on level terrain, pavement but there are days when he can not walk more than a few blocks before the left knee pain is too much and he has to stop. He is anticipating left knee unicompartmental medial arthroplasty on July 25. Jacinto reports two falls in the past year. In one instance, he caught his toe on the sidewalk going around a corner . The other fall was into [place] while scrambling up some rocks. He has one step up to his patio but no other stairs at home. He has enlisted his [employer] to assist after surgery. Prior Treatments and Tests Prior PT (9 visits) for left knee dysfunction at this clinic in 2020. Future Testing and Treatments Planned Left unicompartmental medial arthroplasty July 25. Treatment Goals Patient/Caregiver Goals Jacinto would like to be able to walk faster, including power walking for exercise. He would like to be able to access local [place] trails with greater confidence PT-OP-C Subjective Start: 07/07/21 13:34 Freq: Status: Active Protocol: Document 07/07/21 14:30 AW (Rec: 07/07/21 16:27 AW [email or web address]) OP-PT Subjective Patient Comments Patient Comments Surgery is scheduled for July 25. Patient Questionnaires Lower Extremity Functional Scale LEFS Score 46 LEFS Impairment 40 to 59% Impaired (Score 32- 47) PT-OP-F Manual Assessment Start: 07/07/21 13:34 Freq: Status: Active Protocol: Document 07/07/21 14:30 AW (Rec: 07/10/21 15:55 AW [id number]) Manual Assessments Soft Tissue Assessment Soft Tissue Mobility Assessment Increased tension at left pes anserine. Vastus lateralis tension bilaterally. Soft tissue swelling/bump posterior medial left knee. Decreased muscle mass left medial gastroc. PT-OP-G Mobility & Gait Start: 07/07/21 13:34 Freq: Status: Active Protocol: Document 07/07/21 14:30 AW (Rec: 07/10/21 15:55 AW [id number]) OP Gait Assessment Gait Gait Assistance Required: Independent Distance (Feet) 100 Able to Maintain Weight Bearing Status Yes During Gait Assistive Devices Assistive Device None Orthotic/Prosthetic Devices or Brace: No Gait Deviations General Gait Pattern Antalgic,Decreased Stride Length,Flexed Trunk,Step-to Gait,Wide Based Gait Factors Limiting Gait Function Factors Limiting Gait Function Limited Range of Motion,Pain, Poor Balance Comments Gait Comments Pt ambulates slowly and with moderately wide JOSE. Step-to patterning is mild but noticeable with decreased RLE step length. PT-OP-J Posture/Palpation/Skin Start: 07/07/21 13:34 Freq: Status: Active Protocol: Document 07/07/21 14:30 AW (Rec: 07/10/21 15:55 AW [id number]) Posture Evaluation Comments Posture Comments Soft tissue swelling/bump is apparent on the left medial posterior knee. Left tibial torsion more pronounced than right. Overpronation and genu varum more apparent left side. PT-OP-K Range of Motion Start: 07/07/21 13:34 Freq: Status: Active Protocol: Document 07/07/21 14:30 AW (Rec: 07/10/21 15:55 AW [id number]) Knee Goniometric Range of Motion Knee ROM Limitations Comments Supine AROM R 0-135, L 0-125. Pain on left with overpressure into flexion. PT-OP-M Strength Start: 07/07/21 13:34 Freq: Status: Active Protocol: Document 07/07/21 14:30 AW (Rec: 07/10/21 15:55 AW [id number]) Hip Strength Hip Manual Muscle Testing bilateral Flexion (L2) 5 Normal Extension (S1) 5 Normal Abduction 5 Normal Knee Strength Knee Manual Muscle Testing bilateral Flexion (S2) 5 Normal Extension (L3) 5 Normal Comments Pain reproduced with resisted movement in flexion and extension. Ankle/Foot Strength Ankle and Foot Manual Muscle Testing Right Dorsiflexion (L4) 5 Normal Plantarflexion (S1) 4+ Good+ Inversion 5 Normal Eversion (S1) 5 Normal Comments Pt completes >15 reps single leg heel lift with B finger support on [place] with no significant sign of fatigue Left Dorsiflexion (L4) 5 Normal Plantarflexion (S1) 4- Good- Inversion 5 Normal Eversion (S1) 5 Normal Comments Pt completes 8 reps single leg heel lift with B finger support on [place] Toe Strength Toe Manual Muscle Testing Great Toe Flexion 5 Normal Extension 5 Normal PT-OP-Q Treatments Start: 07/07/21 13:34 Freq: Status: Active Protocol: Document 07/07/21 14:30 AW (Rec: 07/10/21 16:20 AW [id number]) Self-Care/Home Management Treatment Education Patient Education Home Exercise Program,Pain Management,Safety Other Education Educated pt on environmental considerations post-knee replacement. Also provided handout on therapeutic exercises to be done before and after surgery until seen in outpatient therapy again. Advised pt on equipment needs for home up to and including FWW, ice packs. Practiced stair navigation with FWW. Activities Self-Care/Home Management Activities Educated pt on environmental considerations post-knee replacement. Also provided handout on therapeutic exercises to be done before and after surgery until seen in outpatient therapy again. Advised pt on equipment needs for home up to and including FWW, ice packs. Practiced stair navigation with FWW. PT-OP-T Assessment and Plan Start: 07/07/21 13:34 Freq: Status: Active Protocol: Document 07/07/21 14:30 AW (Rec: 07/10/21 16:20 AW [id number]) Physical Therapy Assessment Rehab Potential Rehabilitation Potential Good Evaluation Complexity Number of Personal Factors/Comorbidities 1-2 Number of Body Systems Impaired 1-2 Clinical Presentation at Evaluation Evolving Impairments Impairments Activity Tolerance,Balance, Functional Activities, Functional Mobility,Gait,Pain, Posture,ROM,Soft Tissue Mobility Goals Four Impairment balance Dry House Tender Goal (LTG) Pt will perform WNL on standardized balance test as a measure of decreased falls risk. LTG Duration 2 months post surgery - 09/24/21 Three Impairment gait Short Term Goal (STG) Pt will walk 1500 feet or greater on 6MWT for improved community ambulation. STG Duration 1 month post surgery - 08/24/21 Dry House Tender Goal (LTG) Pt will walk 1650 feet or greater on 6MWT for denominational of pre-surgical level of mobility. LTG Duration 2 months post surgery - 09/24/21 Two Impairment ROM Short Term Goal (STG) Pt will improve AROM left knee to 0-110 or greater for improved functional gait. STG Duration 1 month post surgery - 08/24/21 Group Home Goal (LTG) Pt will improve AROM left knee to 0-125 or greater for independent stair navigation. LTG Duration 2 months post surgery - 09/24/21 One Impairment HEP Group Home Goal (LTG) Pt will perform progressive HEP independently including flexibility, balance, and strengthening exercises to decrease pain and improve gait quality LTG Duration 2 months post surgery - 09/24/21 Assessment Summary Assessment Germain attends outpatient physical therapy in anticipation of left knee medial compartment arthroplasty on 07/25/21. Knee pain has limited his ability to walk more than a few miles on pavement on most days and more than a few blocks on worse days. Pt will be re- assessed after surgery and is expected to benefit from PT to address flexibility, gait, balance, and strength impairments. Physical Therapy Plan Frequency and Duration Frequency of Treatment 2x/Week Duration of Treatment 2 months following surgery Plan of Care Start Date 07/07/21 Plan of Care End Date 09/24/21 Therapeutic Interventions Therapeutic Interventions Balance Training,Gait Training ,Home Exercise Program,Joint Mobilizations,Manual Therapy, Neuromuscular Re-education, Orthotic/Prosthetic Management ,Patient/Caregiver Education, Self-Care/Home Management,Soft Tissue Mobilization,Taping, Therapeutic Activities, Therapeutic Exercises Modalities Cold Pack/Ice Massage,Hot Packs Next Visit Focus/Plan Next Note Type Treatment Note Next Visit Plan Re-assess ROM, strength, gait following surgery. Initiate ROM and strength training.
--- NOTE | 2021-07-27 17:28 | PT.OTN ---
Current Diagnoses Unilateral primary osteoarthritis, left knee (07/27/21) Difficulty in walking, not elsewhere classified (07/27/21) Presence of left artificial knee joint (07/27/21) Physical Therapy Treatment Note PT-OP-A Visit Information Start: 07/07/21 13:34 Freq: Status: Active Protocol: Document 07/27/21 16:45 AW (Rec: 07/27/21 16:53 AW [id number]) Out-Patient Physical Therapy Visit Information Visit Information Visit Type Treatment Note Visit Start Time 16:00 Visit Stop Time 17:01 Total Visit Minutes 61 Visit Number 2 Number of MAINTENANCE ANALYST Visits 0 Evaluation Information Evaluation Date 07/07/21 Precautions Precautions L uni knee 07/25/21 - WBAT PT-OP-B Current Condition Start: 07/07/21 13:34 Freq: Status: Active Protocol: Document 07/27/21 16:45 AW (Rec: 07/27/21 16:53 AW [id number]) Current Condition History of Current Condition History of Current Condition Left unicompartmental medial knee arthroplasty 2 days ago. Has been ambulating with FWW at home. Taking oxycodone and ibuprofen/tylenol at home. Pain is largely concentrated in medial and anterior knee. 7 /10 pain with ambulation. Has been icing with gel packs nearly constantly. Sister in law stayed < 48 hours and pt is now alone. Another friend is going to arrive tomorrow to assist. Future Testing and Treatments Planned Follow up with ortho in two weeks. Treatment Goals Patient/Caregiver Goals Jacinto would like to be able to walk faster, including power walking for exercise. He would like to be able to access local [place] [employer] trails with greater confidence Current Functional Impairments (Reported) Functional Limitations- ADL's Difficulty with lower body dressing due to pain Functional Limitations- Mobility/Gait Walks 100 feet with FWW SBA Personal Factors Other Personal Factors That May Effect Pt is likely to do too much Therapy/Recovery too soon and will need vigilance in this regard. PT-OP-C Subjective Start: 07/07/21 13:34 Freq: Status: Active Protocol: Document 07/27/21 16:45 AW (Rec: 07/27/21 16:53 AW [id number]) OP-PT Subjective Patient Comments Patient Comments Pt arrives walking without assistive device. This hurts a lot more than I thought it would. OP-PT Pain Assessment Location left knee Pain Location Details left knee Comments Pain Comments 03/26 with ambulation. Pain present in medial and anterior knee, anterior thigh. PT-OP-F Manual Assessment Start: 07/07/21 13:34 Freq: Status: Active Protocol: Document 07/07/21 14:30 AW (Rec: 07/10/21 15:55 AW [id number]) Manual Assessments Soft Tissue Assessment Soft Tissue Mobility Assessment Increased tension at left pes anserine. Vastus lateralis tension bilaterally. Soft tissue swelling/bump posterior medial left knee. Decreased muscle mass left medial gastroc. PT-OP-G Mobility & Gait Start: 07/07/21 13:34 Freq: Status: Active Protocol: Document 07/27/21 16:45 AW (Rec: 07/27/21 16:58 AW [email or web address]) OP Mobility Evaluation Transfers Sit to Stand definite need to use hands Bed to Chair Transfers uses RLE to lift LLE OP Gait Assessment Gait Gait Assistance Required: Standby Assistance,Contact Guard Assist Distance (Feet) 100 Able to Maintain Weight Bearing Status Yes During Gait Assistive Devices Assistive Device Front Wheeled Walker Orthotic/Prosthetic Devices or Brace: No Gait Deviations General Gait Pattern Antalgic,Decreased Stride Length,Flexed Trunk,Step-to Gait,Wide Based Gait Factors Limiting Gait Function Factors Limiting Gait Function Decreased Strength,Limited Range of Motion,Pain,Poor Balance,Poor Safety Awareness Comments Gait Comments Pt arrived with no AD. Trialed SPC but pt was unsafe and lacked stability. With FWW, pt able to ambulate to car, responding well to cues for equal step lengths and heel strike at initial contact. Stair Climbing Evaluation Comments Stair Climbing Comments Not assessed. PT-OP-J Posture/Palpation/Skin Start: 07/07/21 13:34 Freq: Status: Active Protocol: Document 07/07/21 14:30 AW (Rec: 07/10/21 15:55 AW [id number]) Posture Evaluation Comments Posture Comments Soft tissue swelling/bump is apparent on the left medial posterior knee. Left tibial torsion more pronounced than right. Overpronation and genu varum more apparent left side. PT-OP-K Range of Motion Start: 07/07/21 13:34 Freq: Status: Active Protocol: Document 07/27/21 16:45 AW (Rec: 07/27/21 16:58 AW [email or web address]) Knee Goniometric Range of Motion Knee ROM Limitations Comments Supine AROM L knee 8-75 actively, 6-85 passively. In sitting, pt able to actively flex to ~85 degrees but with increase in pain >2 points on 10-point scale. Ankle and Foot Goniometric Range of Motion Ankle and Foot ROM Limitations Comments Limited dorsiflexion left ankle secondary to pain PT-OP-M Strength Start: 07/07/21 13:34 Freq: Status: Active Protocol: Document 07/27/21 16:45 AW (Rec: 07/27/21 16:58 AW [email or web address]) Knee Strength Knee Manual Muscle Testing Left Flexion (S2) 3- Fair- Extension (L3) 3 Fair PT-OP-Q Treatments Start: 07/07/21 13:34 Freq: Status: Active Protocol: Document 07/27/21 16:45 AW (Rec: 07/27/21 17:18 AW [email or web address]) Therapeutic Exercises Supine Exercises heel slide Supine Exercise Name heel slide Side left Resistance AAROM with therapist assist Reps/Minutes x8 Comments limited tolerance in supine quad set Supine Exercise Name quad set Side left Resistance AROM Reps/Minutes x10 Comments cued slow controlled contraction Sitting Exercises knee flexion slide Sitting Exercise Name knee flexion slide Side left Equipment Used AROM with pillow case on floor for glide Reps/Minutes x10 Comments ~85-90 degrees flexion in sitting Therapeutic Activity Therapeutic Activity car transfer Name car transfer Reps/Minutes 2 min Comments CGA and cues for walker management to transfer in to [facility] Gait Training Gait Activity assistive device Description level surface Device Used SPC, FWW Level of Assistance CGA with SPC; SBA with FWW Surface carpet, tile, parking lot Distance/Duration 100', 200' Treatment Focus AD selection Comments Assessed gait with SPC which pt was able to pattern but was unsafe. Assessed gait with FWW, requiring SBA and cues for step length. Self-Care/Home Management Treatment Education Patient Education Home Exercise Program,Pain Management,Safety Other Education Issued post-op HEP with ROM focus. Encouraged pt to ice frequently and to get up for short walks around the house every 1-2 hours. PT-OP-R Modalities Start: 07/07/21 13:34 Freq: Status: Active Protocol: Document 07/27/21 16:45 AW (Rec: 07/27/21 17:26 AW [email or web address]) Hot Pack/Cold Pack Treatment Cold Pack Location left knee Patient Position Hooklying Treatment Duration (minutes) 15 Patient Tolerance Good Comments cryo cuff was tolerated well in hooklying with LLE on bolster PT-OP-T Assessment and Plan Start: 07/07/21 13:34 Freq: Status: Active Protocol: Document 07/27/21 16:45 AW (Rec: 07/27/21 17:24 AW [email or web address]) Physical Therapy Assessment Impairments Impairments Activity Tolerance,Balance, Edema,Functional Activities, Functional Mobility,Gait, Integument,Pain,Posture,ROM, Soft Tissue Mobility,Strength Goals Four Impairment balance [facility]ci Goal (LTG) Pt will perform WNL on standardized balance test as a measure of decreased falls risk. LTG Duration 2 months post surgery - 09/24/21 Three Impairment gait Short Term Goal (STG) Pt will walk 1500 feet or greater on 6MWT for improved community ambulation. STG Duration 1 month post surgery - 08/24/21 Director Rehabilitation Program Goal (LTG) Pt will walk 1650 feet or greater on 6MWT for advent of pre-surgical level of mobility. LTG Duration 2 months post surgery - 09/24/21 Two Impairment ROM Short Term Goal (STG) Pt will improve AROM left knee to 0-110 or greater for improved functional gait. STG Duration 1 month post surgery - 08/24/21 Fci Goal (LTG) Pt will improve AROM left knee to 0-125 or greater for independent stair navigation. LTG Duration 2 months post surgery - 09/24/21 One Impairment HEP [facility]ci Goal (LTG) Pt will perform progressive HEP independently including flexibility, balance, and strengthening exercises to decrease pain and improve gait quality LTG Duration 2 months post surgery - 09/24/21 Assessment Summary Assessment Jacinto arrived today without assistive device. He reports he has been using FWW around the house but decided to try walking to today's appointment with no device. After assessing gait with SPC and FWW, PT recommended continued use of FWW at this time for improved stability, efficiency , and gait mechanics. Issued initial HEP and encouraged pt to continue icing, focus on ROM and short bouts of activity at home using FWW. Physical Therapy Plan Frequency and Duration Frequency of Treatment 2x/Week Duration of Treatment 2 months following surgery Plan of Care Start Date 07/07/21 Plan of Care End Date 09/24/21 Therapeutic Interventions Therapeutic Interventions Balance Training,Gait Training ,Home Exercise Program,Joint Mobilizations,Manual Therapy, Neuromuscular Re-education, Orthotic/Prosthetic Management ,Patient/Caregiver Education, Self-Care/Home Management,Soft Tissue Mobilization,Taping, Therapeutic Activities, Therapeutic Exercises Modalities Cold Pack/Ice Massage,Hot Packs Other Therapeutic Interventions cryo cuff Next Visit Focus/Plan Next Note Type Treatment Note Next Visit Plan Assess initial HEP, progress as tolerated, re-assess gait with FWW or LRAD, modalities for pain management
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
--- NOTE | 2021-08-16 10:51 | PT.OTN ---
Current Diagnoses Unilateral primary osteoarthritis, left knee (08/16/21) Difficulty in walking, not elsewhere classified (08/16/21) Presence of left artificial knee joint (08/16/21) Physical Therapy Treatment Note PT-OP-A Visit Information Start: 07/07/21 13:34 Freq: Status: Active Protocol: Document 08/16/21 10:30 AW (Rec: 08/16/21 10:32 AW [id number]) Out-Patient Physical Therapy Visit Information Visit Information Visit Start Time 09:45 Visit Stop Time 10:30 Total Visit Minutes 45 Visit Number 6 Number of CLINICAL OPERATIONS MANAGER Visits 0 Precautions Precautions L uni knee 07/25/21 - WBAT PT-OP-B Current Condition Start: 07/07/21 13:34 Freq: Status: Active Protocol: Document 07/27/21 16:45 AW (Rec: 07/27/21 16:53 AW [id number]) Current Condition History of Current Condition History of Current Condition Left unicompartmental medial knee arthroplasty 2 days ago. Has been ambulating with FWW at home. Taking oxycodone and ibuprofen/tylenol at home. Pain is largely concentrated in medial and anterior knee. 7 /10 pain with ambulation. Has been icing with gel packs nearly constantly. Sister in law stayed < 48 hours and pt is now alone. Another friend is going to arrive tomorrow to assist. Future Testing and Treatments Planned Follow up with ortho in two weeks. Treatment Goals Patient/Caregiver Goals Jacinto would like to be able to walk faster, including power walking for exercise. He would like to be able to access local [place] trails with greater confidence Current Functional Impairments (Reported) Functional Limitations- ADL's Difficulty with lower body dressing due to pain Functional Limitations- Mobility/Gait Walks 100 feet with FWW SBA Personal Factors Other Personal Factors That May Effect Pt is likely to do too much Therapy/Recovery too soon and will need vigilance in this regard. PT-OP-C Subjective Start: 07/07/21 13:34 Freq: Status: Active Protocol: Document 08/16/21 10:30 AW (Rec: 08/16/21 10:32 AW [id number]) OP-PT Subjective Patient Comments Patient Comments Swelling around ankle has improved with some compression . PT-OP-K Range of Motion Start: 07/07/21 13:34 Freq: Status: Active Protocol: Document 08/16/21 10:30 AW (Rec: 08/16/21 10:51 AW [email or web address]) Knee Goniometric Range of Motion Knee Left Patient Position Supine Flexion Active (degrees) 120 Flexion Passive (degrees) 125 Extension Active (degrees) 2 PT-OP-Q Treatments Start: 07/07/21 13:34 Freq: Status: Active Protocol: Document 08/16/21 10:30 AW (Rec: 08/16/21 10:32 AW [id number]) Cardio Equipment Recumbent Stepper (Sci-Fit) Duration (Minutes) 8 Resistance 3.0 Seat Position 12 Therapeutic Exercises Supine Exercises modified steve test stretch Supine Exercise Name modified steve test stretch Side left Reps/Minutes 1 min Comments HEP active SLR Supine Exercise Name active SLR Side left Resistance AROM Reps/Minutes 2x12 Comments cued ppt; HEP passive knee extension hang Supine Exercise Name passive knee extension hang Equipment Used foam roll under ankle Reps/Minutes 6 min Comments with STM to medial HS and gastroc heel slide Supine Exercise Name heel slide Side left Resistance AROM to 120 Reps/Minutes x12 Comments 2/10 pain Sitting Exercises LAQ Sitting Exercise Name LAQ Side left Resistance AROM Reps/Minutes 2x12 Comments HEP knee flexion slide Sitting Exercise Name knee flexion slide Side left Equipment Used AROM with pillow case on floor for glide Reps/Minutes x10 Comments 115 in sitting Gait Training Gait Activity assistive device Description level surface Device Used SPC Level of Assistance SBA Surface carpet, tile Distance/Duration 100' Treatment Focus patterning, increasing L knee flexion Comments . PT-OP-T Assessment and Plan Start: 07/07/21 13:34 Freq: Status: Active Protocol: Document 08/16/21 10:30 AW (Rec: 08/16/21 10:51 AW [email or web address]) Physical Therapy Assessment Goals Four Impairment balance Electroencephalographic Technologist Goal (LTG) Pt will perform WNL on standardized balance test as a measure of decreased falls risk. LTG Duration 2 months post surgery - 09/24/21 Three Impairment gait Short Term Goal (STG) Pt will walk 1500 feet or greater on 6MWT for improved community ambulation. STG Duration 1 month post surgery - 08/24/21 Electroencephalographic Technologist Goal (LTG) Pt will walk 1650 feet or greater on 6MWT for hindu of pre-surgical level of mobility. LTG Duration 2 months post surgery - 09/24/21 Two Impairment ROM Short Term Goal (STG) Pt will improve AROM left knee to 0-110 or greater for improved functional gait. STG Duration 1 month post surgery - 08/24/21 Detention Goal (LTG) Pt will improve AROM left knee to 0-125 or greater for independent stair navigation. LTG Duration 2 months post surgery - 09/24/21 One Impairment HEP Detention Goal (LTG) Pt will perform progressive HEP independently including flexibility, balance, and strengthening exercises to decrease pain and improve gait quality LTG Duration 2 months post surgery - 09/24/21 Assessment Summary Assessment Swelling improving with compression. Pt still has palpable mass in posteromedial knee (consistent with preop). AROM improved to 2-120 in supine today. Pt has concerns about copay and would like to reduce frequency to weekly. PT agrees this is appropriate since he is making good ROM gains and he is compliant with HEP. Physical Therapy Plan Frequency and Duration Frequency of Treatment 2x/Week Duration of Treatment 2 months following surgery Plan of Care Start Date 07/07/21 Plan of Care End Date 09/24/21 Therapeutic Interventions Therapeutic Interventions Balance Training,Gait Training ,Home Exercise Program,Joint Mobilizations,Manual Therapy, Neuromuscular Re-education, Orthotic/Prosthetic Management ,Patient/Caregiver Education, Self-Care/Home Management,Soft Tissue Mobilization,Taping, Therapeutic Activities, Therapeutic Exercises Modalities Cold Pack/Ice Massage,Hot Packs Other Therapeutic Interventions cryo cuff Next Visit Focus/Plan Next Note Type Treatment Note Next Visit Plan Progress HEP as tolerated - including proximal strengthening, continue gait training with trekking pole(s) or no device, assess stairs, modalities for pain management .
--- NOTE | 2021-08-24 12:11 | PT.OTN ---
Current Diagnoses Unilateral primary osteoarthritis, left knee (08/24/21) Difficulty in walking, not elsewhere classified (08/24/21) Presence of left artificial knee joint (08/24/21) Physical Therapy Treatment Note PT-OP-A Visit Information Start: 07/07/21 13:34 Freq: Status: Active Protocol: Document 08/24/21 11:15 AW (Rec: 08/24/21 11:16 AW [id number]) Out-Patient Physical Therapy Visit Information Visit Information Visit Type Treatment Note Visit Start Time 10:30 Visit Stop Time 11:15 Total Visit Minutes 45 Visit Number 7 Number of DIE STAMPER Visits 0 Evaluation Information Evaluation Date 07/07/21 Precautions Precautions L uni knee 07/25/21 - WBAT PT-OP-B Current Condition Start: 07/07/21 13:34 Freq: Status: Active Protocol: Document 07/27/21 16:45 AW (Rec: 07/27/21 16:53 AW [id number]) Current Condition History of Current Condition History of Current Condition Left unicompartmental medial knee arthroplasty 2 days ago. Has been ambulating with FWW at home. Taking oxycodone and ibuprofen/tylenol at home. Pain is largely concentrated in medial and anterior knee. 7 /10 pain with ambulation. Has been icing with gel packs nearly constantly. Sister in law stayed < 48 hours and pt is now alone. Another friend is going to arrive tomorrow to assist. Future Testing and Treatments Planned Follow up with ortho in two weeks. Treatment Goals Patient/Caregiver Goals Jacinto would like to be able to walk faster, including power walking for exercise. He would like to be able to access local [place] trails with greater confidence Current Functional Impairments (Reported) Functional Limitations- ADL's Difficulty with lower body dressing due to pain Functional Limitations- Mobility/Gait Walks 100 feet with FWW SBA Personal Factors Other Personal Factors That May Effect Pt is likely to do too much Therapy/Recovery too soon and will need vigilance in this regard. PT-OP-C Subjective Start: 07/07/21 13:34 Freq: Status: Active Protocol: Document 08/24/21 11:15 AW (Rec: 08/24/21 11:16 AW [id number]) OP-PT Subjective Patient Comments Patient [place]. Downhill walking still irritates the knee PT-OP-F Manual Assessment Start: 07/07/21 13:34 Freq: Status: Active Protocol: Document 07/07/21 14:30 AW (Rec: 07/10/21 15:55 AW [id number]) Manual Assessments Soft Tissue Assessment Soft Tissue Mobility Assessment Increased tension at left pes anserine. Vastus lateralis tension bilaterally. Soft tissue swelling/bump posterior medial left knee. Decreased muscle mass left medial gastroc. PT-OP-G Mobility & Gait Start: 07/07/21 13:34 Freq: Status: Active Protocol: Document 07/27/21 16:45 AW (Rec: 07/27/21 16:58 AW [email or web address]) OP Mobility Evaluation Transfers Sit to Stand definite need to use hands Bed to Chair Transfers uses RLE to lift LLE OP Gait Assessment Gait Gait Assistance Required: Standby Assistance,Contact Guard Assist Distance (Feet) 100 Able to Maintain Weight Bearing Status Yes During Gait Assistive Devices Assistive Device Front Wheeled Walker Orthotic/Prosthetic Devices or Brace: No Gait Deviations General Gait Pattern Antalgic,Decreased Stride Length,Flexed Trunk,Step-to Gait,Wide Based Gait Factors Limiting Gait Function Factors Limiting Gait Function Decreased Strength,Limited Range of Motion,Pain,Poor Balance,Poor Safety Awareness Comments Gait Comments Pt arrived with no AD. Trialed SPC but pt was unsafe and lacked stability. With FWW, pt able to ambulate to car, responding well to cues for equal step lengths and heel strike at initial contact. Stair Climbing Evaluation Comments Stair Climbing Comments Not assessed. PT-OP-J Posture/Palpation/Skin Start: 07/07/21 13:34 Freq: Status: Active Protocol: Document 07/07/21 14:30 AW (Rec: 07/10/21 15:55 AW [id number]) Posture Evaluation Comments Posture Comments Soft tissue swelling/bump is apparent on the left medial posterior knee. Left tibial torsion more pronounced than right. Overpronation and genu varum more apparent left side. PT-OP-K Range of Motion Start: 07/07/21 13:34 Freq: Status: Active Protocol: Document 08/24/21 11:15 AW (Rec: 08/24/21 11:16 AW [id number]) Knee Goniometric Range of Motion Knee Left Patient Position Supine Flexion Active (degrees) 125 Flexion Passive (degrees) 128 Extension Active (degrees) 1 PT-OP-M Strength Start: 07/07/21 13:34 Freq: Status: Active Protocol: Document 07/27/21 16:45 AW (Rec: 07/27/21 16:58 AW [email or web address]) Knee Strength Knee Manual Muscle Testing Left Flexion (S2) 3- Fair- Extension (L3) 3 Fair PT-OP-Q Treatments Start: 07/07/21 13:34 Freq: Status: Active Protocol: Document 08/24/21 11:15 AW (Rec: 08/24/21 11:16 AW [id number]) Cardio Equipment Bicycle (Upright) Duration (Minutes) 8 Resistance 5 Seat Position 5 Other knee flexion in comfortable range Therapeutic Exercises Supine Exercises modified steve test stretch Supine Exercise Name modified steve test stretch Side left Reps/Minutes 1 min Comments HEP review active SLR Supine Exercise Name active SLR Side left Resistance AROM Reps/Minutes 2x12 Comments cued ppt; to ~45 degrees only and pt requires cues to limit passive knee extension hang Supine Exercise Name passive knee extension hang Equipment Used foam roll under ankle Reps/Minutes 6 min Comments with scar mobilization massage heel slide Supine Exercise Name heel slide Side left Resistance AROM to 125 Reps/Minutes x12 Comments 09/26 pain Gait Training Gait Activity 6MWT Description 6MWT Device Used SPC mostly held in hand, used 10% of strides Level of Assistance IND Surface level Distance/Duration 1075' Comments Pt uses SPC ~10% of the time. He vaults on the LLE with and without cane. Without cane, pt has increased left lean in ipsilateral stance. Manual Therapy Treatment Soft Tissue Mobilization scar mob Body Location scar mob Intensity/Depth Superficial Body Position Supine Comments duirng passive extension hang PT-OP-R Modalities Start: 07/07/21 13:34 Freq: Status: Active Protocol: Document 08/08/21 09:27 MA (Rec: 08/08/21 10:15 MA [id number]) Hot Pack/Cold Pack Treatment Cold Pack Location left knee Patient Position Hooklying Treatment Duration (minutes) 15 Patient Tolerance Good Comments cold packs today as cryo cuff was unavailable PT-OP-T Assessment and Plan Start: 07/07/21 13:34 Freq: Status: Active Protocol: Document 08/24/21 11:15 AW (Rec: 08/24/21 12:10 AW [email or web address]) Physical Therapy Assessment Goals Four Impairment balance Employment Security Officer Goal (LTG) Pt will perform WNL on standardized balance test as a measure of decreased falls risk. LTG Duration 2 months post surgery - 09/24/21 Three Impairment gait Short Term Goal (STG) Pt will walk 1500 feet or greater on 6MWT for improved community ambulation. 08/24/21 Progressing toward goal. Pt walks 1075 feet in 6 min today with SPC ~10% of the time. STG Duration 1 month post surgery - 08/24/21 Employment Security Officer Goal (LTG) Pt will walk 1650 feet or greater on 6MWT for church of pre-surgical level of mobility. LTG Duration 2 months post surgery - 09/24/21 Two Impairment ROM Short Term Goal (STG) Pt will improve AROM left knee to 0-110 or greater for improved functional gait. 08/24/21 - Pt has 1-125 active ROM today. STG Duration 1 month post surgery - 08/24/21 Employment Security Officer Goal (LTG) Pt will improve AROM left knee to 0-125 or greater for independent stair navigation. LTG Duration 2 months post surgery - 09/24/21 One Impairment HEP Employment Security Officer Goal (LTG) Pt will perform progressive HEP independently including flexibility, balance, and strengthening exercises to decrease pain and improve gait quality LTG Duration 2 months post surgery - 09/24/21 Assessment Summary Assessment ROM and gait speed improving. Pt has reduced left hip abduction in gait but does tend to vault on LLE with and without cane. Physical Therapy Plan Frequency and Duration Frequency of Treatment 2x/Week Duration of Treatment 2 months following surgery Plan of Care Start Date 07/07/21 Plan of Care End Date 09/24/21 Therapeutic Interventions Therapeutic Interventions Balance Training,Gait Training ,Home Exercise Program,Joint Mobilizations,Manual Therapy, Neuromuscular Re-education, Orthotic/Prosthetic Management ,Patient/Caregiver Education, Self-Care/Home Management,Soft Tissue Mobilization,Taping, Therapeutic Activities, Therapeutic Exercises Modalities Cold Pack/Ice Massage,Hot Packs Other Therapeutic Interventions cryo cuff Next Visit Focus/Plan Next Note Type Treatment Note Next Visit Plan Progress HEP as tolerated - including proximal strengthening, continue gait training, assess stairs, modalities for pain management . Consider TKE and resisted ambulation next session.
--- NOTE | 2021-08-30 17:22 | PT.OTN ---
Current Diagnoses Unilateral primary osteoarthritis, left knee (08/30/21) Difficulty in walking, not elsewhere classified (08/30/21) Presence of left artificial knee joint (08/30/21) Physical Therapy Treatment Note PT-OP-A Visit Information Start: 07/07/21 13:34 Freq: Status: Active Protocol: Document 08/30/21 16:00 AW (Rec: 08/30/21 16:05 AW [id number]) Out-Patient Physical Therapy Visit Information Visit Information Visit Type Treatment Note Visit Start Time 15:15 Visit Stop Time 16:00 Total Visit Minutes 45 Visit Number 8 Number of PROVIDER RELATIONS MANAGER Visits 0 Evaluation Information Evaluation Date 07/07/21 Precautions Precautions L uni knee 07/25/21 - WBAT PT-OP-B Current Condition Start: 07/07/21 13:34 Freq: Status: Active Protocol: Document 07/27/21 16:45 AW (Rec: 07/27/21 16:53 AW [id number]) Current Condition History of Current Condition History of Current Condition Left unicompartmental medial knee arthroplasty 2 days ago. Has been ambulating with FWW at home. Taking oxycodone and ibuprofen/tylenol at home. Pain is largely concentrated in medial and anterior knee. 7 /10 pain with ambulation. Has been icing with gel packs nearly constantly. Sister in law stayed < 48 hours and pt is now alone. Another friend is going to arrive tomorrow to assist. Future Testing and Treatments Planned Follow up with ortho in two weeks. Treatment Goals Patient/Caregiver Goals Jacinto would like to be able to walk faster, including power walking for exercise. He would like to be able to access local [facility] trails with greater confidence Current Functional Impairments (Reported) Functional Limitations- ADL's Difficulty with lower body dressing due to pain Functional Limitations- Mobility/Gait Walks 100 feet with FWW SBA Personal Factors Other Personal Factors That May Effect Pt is likely to do too much Therapy/Recovery too soon and will need vigilance in this regard. PT-OP-C Subjective Start: 07/07/21 13:34 Freq: Status: Active Protocol: Document 08/30/21 16:00 AW (Rec: 08/30/21 16:05 AW [id number]) OP-PT Subjective Patient Comments Patient Comments Walking farther with less pain . Still using cane nearly 1/3 of the time in the house and close to 100% out of the house . Trying to sleep in the bed but has not found a comfortable position yet. PT-OP-F Manual Assessment Start: 07/07/21 13:34 Freq: Status: Active Protocol: Document 07/07/21 14:30 AW (Rec: 07/10/21 15:55 AW [id number]) Manual Assessments Soft Tissue Assessment Soft Tissue Mobility Assessment Increased tension at left pes anserine. Vastus lateralis tension bilaterally. Soft tissue swelling/bump posterior medial left knee. Decreased muscle mass left medial gastroc. PT-OP-G Mobility & Gait Start: 07/07/21 13:34 Freq: Status: Active Protocol: Document 07/27/21 16:45 AW (Rec: 07/27/21 16:58 AW [id number]) OP Mobility Evaluation Transfers Sit to Stand definite need to use hands Bed to Chair Transfers uses RLE to lift LLE OP Gait Assessment Gait Gait Assistance Required: Standby Assistance,Contact Guard Assist Distance (Feet) 100 Able to Maintain Weight Bearing Status Yes During Gait Assistive Devices Assistive Device Front Wheeled Walker Orthotic/Prosthetic Devices or Brace: No Gait Deviations General Gait Pattern Antalgic,Decreased Stride Length,Flexed Trunk,Step-to Gait,Wide Based Gait Factors Limiting Gait Function Factors Limiting Gait Function Decreased Strength,Limited Range of Motion,Pain,Poor Balance,Poor Safety Awareness Comments Gait Comments Pt arrived with no AD. Trialed SPC but pt was unsafe and lacked stability. With FWW, pt able to ambulate to car, responding well to cues for equal step lengths and heel strike at initial contact. Stair Climbing Evaluation Comments Stair Climbing Comments Not assessed. PT-OP-J Posture/Palpation/Skin Start: 07/07/21 13:34 Freq: Status: Active Protocol: Document 07/07/21 14:30 AW (Rec: 07/10/21 15:55 AW [id number]) Posture Evaluation Comments Posture Comments Soft tissue swelling/bump is apparent on the left medial posterior knee. Left tibial torsion more pronounced than right. Overpronation and genu varum more apparent left side. PT-OP-K Range of Motion Start: 07/07/21 13:34 Freq: Status: Active Protocol: Document 08/24/21 11:15 AW (Rec: 08/24/21 11:16 AW [id number]) Knee Goniometric Range of Motion Knee Left Patient Position Supine Flexion Active (degrees) 125 Flexion Passive (degrees) 128 Extension Active (degrees) 1 PT-OP-M Strength Start: 07/07/21 13:34 Freq: Status: Active Protocol: Document 07/27/21 16:45 AW (Rec: 07/27/21 16:58 AW [email or web address]) Knee Strength Knee Manual Muscle Testing Left Flexion (S2) 3- Fair- Extension (L3) 3 Fair PT-OP-Q Treatments Start: 07/07/21 13:34 Freq: Status: Active Protocol: Document 08/30/21 16:00 AW (Rec: 08/30/21 16:05 AW [id number]) Cardio Equipment Bicycle (Upright) Duration (Minutes) 8 Resistance 5 Seat Position 5 Other knee flexion in comfortable range Therapeutic Exercises Supine Exercises passive knee extension hang Supine Exercise Name passive knee extension hang Equipment Used foam roll under ankle Reps/Minutes 10 min Comments with scar mobilization massage heel slide Supine Exercise Name heel slide Side left Resistance AROM to 130; PROM to 135 Reps/Minutes x12 Comments 1/10 pain Standing Exercises resisted ambulation Standing Exercise Name resisted ambulation Resistance yellow loop Reps/Minutes 8' lap x 4 Comments fwd/bwd only w/ focus on extension TKE Standing Exercise Name TKE Side left Resistance TB2 Reps/Minutes 15 x 2 Comments HEP Gait Training Gait Activity stairs Description stairs Device Used SPC, uni rail Level of Assistance SBA Surface 4 and 6 stairs Distance/Duration 8 min Treatment Focus patterning, stability Comments - step-to w/ SPC - step-to w/ uni rail - step over step w/ SPC - step over step w/ uni rail Manual Therapy Treatment Soft Tissue Mobilization scar mob Body Location scar mob Intensity/Depth Superficial Body Position Supine Comments duirng passive extension hang PT-OP-R Modalities Start: 07/07/21 13:34 Freq: Status: Active Protocol: Document 08/08/21 09:27 MA (Rec: 08/08/21 10:15 MA [id number]) Hot Pack/Cold Pack Treatment Cold Pack Location left knee Patient Position Hooklying Treatment Duration (minutes) 15 Patient Tolerance Good Comments cold packs today as cryo cuff was unavailable PT-OP-T Assessment and Plan Start: 07/07/21 13:34 Freq: Status: Active Protocol: Document 08/30/21 16:00 AW (Rec: 08/30/21 17:21 AW [id number]) Physical Therapy Assessment Goals Four Impairment balance Farm Management Adviser Goal (LTG) Pt will perform WNL on standardized balance test as a measure of decreased falls risk. LTG Duration 2 months post surgery - 09/24/21 Three Impairment gait Short Term Goal (STG) Pt will walk 1500 feet or greater on 6MWT for improved community ambulation. 08/24/21 Progressing toward goal. Pt walks 1075 feet in 6 min today with SPC ~10% of the time. STG Duration 1 month post surgery - 08/24/21 Correction Goal (LTG) Pt will walk 1650 feet or greater on 6MWT for anglican of pre-surgical level of mobility. LTG Duration 2 months post surgery - 09/24/21 Two Impairment ROM Short Term Goal (STG) Pt will improve AROM left knee to 0-110 or greater for improved functional gait. 08/24/21 - Pt has 1-125 active ROM today. STG Duration 1 month post surgery - 08/24/21 Farm Management Adviser Goal (LTG) Pt will improve AROM left knee to 0-125 or greater for independent stair navigation. 08/30/21 MET LTG Duration 2 months post surgery - 09/24/21 One Impairment HEP Correction Goal (LTG) Pt will perform progressive HEP independently including flexibility, balance, and strengthening exercises to decrease pain and improve gait quality LTG Duration 2 months post surgery - 09/24/21 Assessment Summary Assessment Reduced vaulting LLE noted today. Assessed stair navigation with pt able to progress to step over step using unilateral rail. AROM continues to improve and pt feels close to readiness for discharge. Will assess goals next visit for progress note. Physical Therapy Plan Frequency and Duration Frequency of Treatment 2x/Week Duration of Treatment 2 months following surgery Plan of Care Start Date 07/07/21 Plan of Care End Date 09/24/21 Therapeutic Interventions Therapeutic Interventions Balance Training,Gait Training ,Home Exercise Program,Joint Mobilizations,Manual Therapy, Neuromuscular Re-education, Orthotic/Prosthetic Management ,Patient/Caregiver Education, Self-Care/Home Management,Soft Tissue Mobilization,Taping, Therapeutic Activities, Therapeutic Exercises Modalities Cold Pack/Ice Massage,Hot Packs Other Therapeutic Interventions cryo cuff Next Visit Focus/Plan Next Note Type Treatment Note Next Visit Plan ASSESS GOALS. Progress HEP as tolerated - including proximal strengthening, continue gait training.
--- NOTE | 2021-09-06 14:54 | PT.OTN ---
Current Diagnoses Unilateral primary osteoarthritis, left knee (09/06/21) Difficulty in walking, not elsewhere classified (09/06/21) Presence of left artificial knee joint (09/06/21) Physical Therapy Treatment Note PT-OP-A Visit Information Start: 07/07/21 13:34 Freq: Status: Active Protocol: Document 09/06/21 14:30 AW (Rec: 09/06/21 14:47 AW [id number]) Out-Patient Physical Therapy Visit Information Visit Information Visit Type Treatment Note Visit Start Time 13:45 Visit Stop Time 14:30 Total Visit Minutes 45 Visit Number 9 Number of CYBER LEGAL ADVISOR Visits 0 Precautions Precautions L uni knee 07/25/21 - WBAT PT-OP-B Current Condition Start: 07/07/21 13:34 Freq: Status: Active Protocol: Document 07/27/21 16:45 AW (Rec: 07/27/21 16:53 AW [id number]) Current Condition History of Current Condition History of Current Condition Left unicompartmental medial knee arthroplasty 2 days ago. Has been ambulating with FWW at home. Taking oxycodone and ibuprofen/tylenol at home. Pain is largely concentrated in medial and anterior knee. 7 /10 pain with ambulation. Has been icing with gel packs nearly constantly. Sister in law stayed < 48 hours and pt is now alone. Another friend is going to arrive tomorrow to assist. Future Testing and Treatments Planned Follow up with ortho in two weeks. Treatment Goals Patient/Caregiver Goals Jacinto would like to be able to walk faster, including power walking for exercise. He would like to be able to access local [employer] trails with greater confidence Current Functional Impairments (Reported) Functional Limitations- ADL's Difficulty with lower body dressing due to pain Functional Limitations- Mobility/Gait Walks 100 feet with FWW SBA Personal Factors Other Personal Factors That May Effect Pt is likely to do too much Therapy/Recovery too soon and will need vigilance in this regard. PT-OP-C Subjective Start: 07/07/21 13:34 Freq: Status: Active Protocol: Document 09/06/21 14:30 AW (Rec: 09/06/21 14:47 AW [id number]) OP-PT Subjective Patient Comments Patient Comments Tried walking with trekking poles and was able to go ~1 mile but had increased achiness afterward. Taking less pain medication. Patient Reported Progress Improving PT-OP-F Manual Assessment Start: 07/07/21 13:34 Freq: Status: Active Protocol: Document 07/07/21 14:30 AW (Rec: 07/10/21 15:55 AW [id number]) Manual Assessments Soft Tissue Assessment Soft Tissue Mobility Assessment Increased tension at left pes anserine. Vastus lateralis tension bilaterally. Soft tissue swelling/bump posterior medial left knee. Decreased muscle mass left medial gastroc. PT-OP-G Mobility & Gait Start: 07/07/21 13:34 Freq: Status: Active Protocol: Document 07/27/21 16:45 AW (Rec: 07/27/21 16:58 AW [email or web address]) OP Mobility Evaluation Transfers Sit to Stand definite need to use hands Bed to Chair Transfers uses RLE to lift LLE OP Gait Assessment Gait Gait Assistance Required: Standby Assistance,Contact Guard Assist Distance (Feet) 100 Able to Maintain Weight Bearing Status Yes During Gait Assistive Devices Assistive Device Front Wheeled Walker Orthotic/Prosthetic Devices or Brace: No Gait Deviations General Gait Pattern Antalgic,Decreased Stride Length,Flexed Trunk,Step-to Gait,Wide Based Gait Factors Limiting Gait Function Factors Limiting Gait Function Decreased Strength,Limited Range of Motion,Pain,Poor Balance,Poor Safety Awareness Comments Gait Comments Pt arrived with no AD. Trialed SPC but pt was unsafe and lacked stability. With FWW, pt able to ambulate to car, responding well to cues for equal step lengths and heel strike at initial contact. Stair Climbing Evaluation Comments Stair Climbing Comments Not assessed. PT-OP-J Posture/Palpation/Skin Start: 07/07/21 13:34 Freq: Status: Active Protocol: Document 07/07/21 14:30 AW (Rec: 07/10/21 15:55 AW [id number]) Posture Evaluation Comments Posture Comments Soft tissue swelling/bump is apparent on the left medial posterior knee. Left tibial torsion more pronounced than right. Overpronation and genu varum more apparent left side. PT-OP-K Range of Motion Start: 07/07/21 13:34 Freq: Status: Active Protocol: Document 08/24/21 11:15 AW (Rec: 08/24/21 11:16 AW [id number]) Knee Goniometric Range of Motion Knee Left Patient Position Supine Flexion Active (degrees) 125 Flexion Passive (degrees) 128 Extension Active (degrees) 1 PT-OP-M Strength Start: 07/07/21 13:34 Freq: Status: Active Protocol: Document 07/27/21 16:45 AW (Rec: 07/27/21 16:58 AW [email or web address]) Knee Strength Knee Manual Muscle Testing Left Flexion (S2) 3- Fair- Extension (L3) 3 Fair PT-OP-Q Treatments Start: 07/07/21 13:34 Freq: Status: Active Protocol: Document 09/06/21 14:30 AW (Rec: 09/06/21 14:47 AW [id number]) Cardio Equipment Bicycle (Upright) Duration (Minutes) 8 Resistance 5 Seat Position 5 Other knee flexion in comfortable range Therapeutic Exercises Supine Exercises active SLR Supine Exercise Name active SLR Side left Resistance AROM Reps/Minutes 2x12 Comments cued ppt; to ~60 degrees with no extensor lag passive knee extension hang Supine Exercise Name passive knee extension hang Equipment Used foam roll under ankle Reps/Minutes 10 min Comments with scar mobilization massage heel slide Supine Exercise Name heel slide Side left Resistance AROM to 130; PROM to 135 Reps/Minutes x12 Comments 1/10 pain Standing Exercises eccentric knee flexion Standing Exercise Name eccentric knee flexion/step down Side left Equipment Used 4 step Reps/Minutes x5 Comments cued neutral knee posture; irritated L knee; dc'ed gastroc stretch Standing Exercise Name gastroc stretch Equipment Used JUJU TKE Standing Exercise Name TKE Side left Resistance TB2 Reps/Minutes 15 x 2 Comments HEP review Gait Training Gait Activity DGI Description DGI Device Used no AD Level of Assistance SBA Distance/Duration 6 min Treatment Focus assessment Comments Single points deducted for minor gait deviations on gait level surface, horizontal and vertical head turns, and stairs. See copy scanned to EMR stairs Description stairs Device Used SPC, uni rail Level of Assistance SBA Surface 4 and 6 stairs Distance/Duration 6 min Treatment Focus patterning, stability Comments - step over step w/ uni rail with improved stability today. 6MWT Description 6MWT Device Used SPC mostly held in hand, used 10% of strides Level of Assistance IND Surface level Distance/Duration 1330' Treatment Focus 1.13 m/s avg gait speed Comments Pt uses SPC ~10% of the time. Decreased vaulting and lateral lean. Split times are consistent with no change in gait speed. Manual Therapy Treatment Soft Tissue Mobilization scar mob Body Location scar mob Intensity/Depth Superficial Body Position Supine Comments duirng passive extension hang PT-OP-R Modalities Start: 07/07/21 13:34 Freq: Status: Active Protocol: Document 08/08/21 09:27 MA (Rec: 08/08/21 10:15 MA [id number]) Hot Pack/Cold Pack Treatment Cold Pack Location left knee Patient Position Hooklying Treatment Duration (minutes) 15 Patient Tolerance Good Comments cold packs today as cryo cuff was unavailable PT-OP-T Assessment and Plan Start: 07/07/21 13:34 Freq: Status: Active Protocol: Document 09/06/21 14:30 AW (Rec: 09/06/21 14:54 AW [id number]) Physical Therapy Assessment Goals Four Impairment balance Usp Goal (LTG) Pt will perform WNL on standardized balance test as a measure of decreased falls risk. 09/06/21 - Pt scored 20/24 on DGI which exceeds the cutoff for increased risk of falls. LTG Duration 2 months post surgery - 09/24/21 Three Impairment gait Short Term Goal (STG) Pt will walk 1500 feet or greater on 6MWT for improved community ambulation. 08/24/21 Progressing toward goal. Pt walks 1075 feet in 6 min today with SPC ~10% of the time. 09/06/21 - Re-assessed today and pt walked 1330' with SPC making contact ~10% of strides . STG Duration 1 month post surgery - 08/24/21 Senior Manager Mmcoe Goal (LTG) Pt will walk 1650 feet or greater on 6MWT for bahai of pre-surgical level of mobility. LTG Duration 2 months post surgery - 09/24/21 Two Impairment ROM Short Term Goal (STG) Pt will improve AROM left knee to 0-110 or greater for improved functional gait. 08/24/21 - Pt has 1-125 active ROM today. STG Duration 1 month post surgery - 08/24/21 Usp Goal (LTG) Pt will improve AROM left knee to 0-125 or greater for independent stair navigation. 08/30/21 MET 09/06/21 - AROM measured at 0- 130 LTG Duration 2 months post surgery - 09/24/21 One Impairment HEP Usp Goal (LTG) Pt will perform progressive HEP independently including flexibility, balance, and strengthening exercises to decrease pain and improve gait quality 09/06/21 - Good goal progress. LTG Duration 2 months post surgery - 09/24/21 Assessment Summary Assessment Continued improvement in gait quality today. Pt improved 6MWT to 1330 feet with minimal use of SPC. Pt scored 20/24 on DGI which exceeds the cutoff for falls risk. Pt would like to drop frequency to every other week and this PT agrees. Physical Therapy Plan Frequency and Duration Frequency of Treatment 2x/Week Duration of Treatment 2 months following surgery Plan of Care Start Date 07/07/21 Plan of Care End Date 09/24/21 Therapeutic Interventions Therapeutic Interventions Balance Training,Gait Training ,Home Exercise Program,Joint Mobilizations,Manual Therapy, Neuromuscular Re-education, Orthotic/Prosthetic Management ,Patient/Caregiver Education, Self-Care/Home Management,Soft Tissue Mobilization,Taping, Therapeutic Activities, Therapeutic Exercises Modalities Cold Pack/Ice Massage,Hot Packs Other Therapeutic Interventions cryo cuff Next Visit Focus/Plan Next Note Type Treatment Note Next Visit Plan Progress HEP as tolerated - including proximal strengthening, continue gait training, stairs, eccentric knee flexion.
--- NOTE | 2021-09-28 12:24 | PT.OTN ---
Current Diagnoses Unilateral primary osteoarthritis, left knee (09/28/21) Difficulty in walking, not elsewhere classified (09/28/21) Presence of left artificial knee joint (09/28/21) Physical Therapy Treatment Note PT-OP-A Visit Information Start: 07/07/21 13:34 Freq: Status: Active Protocol: Document 09/28/21 10:30 AW (Rec: 09/28/21 10:33 AW [id number]) Out-Patient Physical Therapy Visit Information Visit Information Visit Type Treatment Note Visit Start Time 09:45 Visit Stop Time 10:30 Total Visit Minutes 45 Visit Number 10 Number of UTILITY LOCATE TECHNICIAN Visits 0 Evaluation Information Evaluation Date 07/07/21 Precautions Precautions L uni knee 07/25/21 - WBAT PT-OP-B Current Condition Start: 07/07/21 13:34 Freq: Status: Active Protocol: Document 07/27/21 16:45 AW (Rec: 07/27/21 16:53 AW [id number]) Current Condition History of Current Condition History of Current Condition Left unicompartmental medial knee arthroplasty 2 days ago. Has been ambulating with FWW at home. Taking oxycodone and ibuprofen/tylenol at home. Pain is largely concentrated in medial and anterior knee. 7 /10 pain with ambulation. Has been icing with gel packs nearly constantly. Sister in law stayed < 48 hours and pt is now alone. Another friend is going to arrive tomorrow to assist. Future Testing and Treatments Planned Follow up with ortho in two weeks. Treatment Goals Patient/Caregiver Goals Jacinto would like to be able to walk faster, including power walking for exercise. He would like to be able to access local [employer] trails with greater confidence Current Functional Impairments (Reported) Functional Limitations- ADL's Difficulty with lower body dressing due to pain Functional Limitations- Mobility/Gait Walks 100 feet with FWW SBA Personal Factors Other Personal Factors That May Effect Pt is likely to do too much Therapy/Recovery too soon and will need vigilance in this regard. PT-OP-C Subjective Start: 07/07/21 13:34 Freq: Status: Active Protocol: Document 09/28/21 10:30 AW (Rec: 09/28/21 10:33 AW [id number]) OP-PT Subjective Patient Comments Patient Comments Been walking with trekking poles on paved [place] trail. Usually 1-mile walks. Two mile walk made him sore the day after. Not using any device at home or for shopping trips. All good news at ortho follow up. Surgeon is pleased with progress. PT-OP-F Manual Assessment Start: 07/07/21 13:34 Freq: Status: Active Protocol: Document 07/07/21 14:30 AW (Rec: 07/10/21 15:55 AW [id number]) Manual Assessments Soft Tissue Assessment Soft Tissue Mobility Assessment Increased tension at left pes anserine. Vastus lateralis tension bilaterally. Soft tissue swelling/bump posterior medial left knee. Decreased muscle mass left medial gastroc. PT-OP-G Mobility & Gait Start: 07/07/21 13:34 Freq: Status: Active Protocol: Document 07/27/21 16:45 AW (Rec: 07/27/21 16:58 AW [id number]) OP Mobility Evaluation Transfers Sit to Stand definite need to use hands Bed to Chair Transfers uses RLE to lift LLE OP Gait Assessment Gait Gait Assistance Required: Standby Assistance,Contact Guard Assist Distance (Feet) 100 Able to Maintain Weight Bearing Status Yes During Gait Assistive Devices Assistive Device Front Wheeled Walker Orthotic/Prosthetic Devices or Brace: No Gait Deviations General Gait Pattern Antalgic,Decreased Stride Length,Flexed Trunk,Step-to Gait,Wide Based Gait Factors Limiting Gait Function Factors Limiting Gait Function Decreased Strength,Limited Range of Motion,Pain,Poor Balance,Poor Safety Awareness Comments Gait Comments Pt arrived with no AD. Trialed SPC but pt was unsafe and lacked stability. With FWW, pt able to ambulate to car, responding well to cues for equal step lengths and heel strike at initial contact. Stair Climbing Evaluation Comments Stair Climbing Comments Not assessed. PT-OP-J Posture/Palpation/Skin Start: 07/07/21 13:34 Freq: Status: Active Protocol: Document 07/07/21 14:30 AW (Rec: 07/10/21 15:55 AW [id number]) Posture Evaluation Comments Posture Comments Soft tissue swelling/bump is apparent on the left medial posterior knee. Left tibial torsion more pronounced than right. Overpronation and genu varum more apparent left side. PT-OP-K Range of Motion Start: 07/07/21 13:34 Freq: Status: Active Protocol: Document 08/24/21 11:15 AW (Rec: 08/24/21 11:16 AW [id number]) Knee Goniometric Range of Motion Knee Left Patient Position Supine Flexion Active (degrees) 125 Flexion Passive (degrees) 128 Extension Active (degrees) 1 PT-OP-M Strength Start: 07/07/21 13:34 Freq: Status: Active Protocol: Document 07/27/21 16:45 AW (Rec: 07/27/21 16:58 AW [id number]) Knee Strength Knee Manual Muscle Testing Left Flexion (S2) 3- Fair- Extension (L3) 3 Fair PT-OP-Q Treatments Start: 07/07/21 13:34 Freq: Status: Active Protocol: Document 09/28/21 10:30 AW (Rec: 09/28/21 10:33 AW [id number]) Cardio Equipment Bicycle (Upright) Duration (Minutes) 8 Resistance 5 Seat Position 5 Other knee flexion in comfortable range Therapeutic Exercises Standing Exercises heel lifts Standing Exercise Name bilat and unilat Side bilateral Resistance AROM Reps/Minutes 10 x 2 Comments HEP SLS Standing Exercise Name SLS - firm, foam, BOSU Equipment Used added to HEP Reps/Minutes NBOS only on bosu Comments improved LLE stability with reps gastroc stretch Standing Exercise Name gastroc stretch Equipment Used JUJU, wall Other Exercises sit to stand Other Exercise Name hip hinge progressed to STS Comments HEP Gait Training Gait Activity stairs Description stairs Device Used uni rail Level of Assistance SBA Surface 4 and 6 stairs Distance/Duration 2 reps Treatment Focus patterning, stability Comments - step over step w/ uni rail with improved stability today. PT-OP-R Modalities Start: 07/07/21 13:34 Freq: Status: Active Protocol: Document 08/08/21 09:27 MA (Rec: 08/08/21 10:15 MA [id number]) Hot Pack/Cold Pack Treatment Cold Pack Location left knee Patient Position Hooklying Treatment Duration (minutes) 15 Patient Tolerance Good Comments cold packs today as cryo cuff was unavailable PT-OP-T Assessment and Plan Start: 07/07/21 13:34 Freq: Status: Active Protocol: Document 09/28/21 10:30 AW (Rec: 09/28/21 12:24 AW [id number]) Physical Therapy Assessment Goals Four Impairment balance Alf Goal (LTG) Pt will perform WNL on standardized balance test as a measure of decreased falls risk. 09/06/21 - Pt scored 20/24 on DGI which exceeds the cutoff for increased risk of falls. LTG Duration 3 months post surgery - Three Impairment gait Short Term Goal (STG) Pt will walk 1500 feet or greater on 6MWT for improved community ambulation. 08/24/21 Progressing toward goal. Pt walks 1075 feet in 6 min today with SPC ~10% of the time. 09/06/21 - Re-assessed today and pt walked 1330' with SPC making contact ~10% of strides . STG Duration 1 month post surgery - 08/24/21 Alf Goal (LTG) Pt will walk 1650 feet or greater on 6MWT for holiness of pre-surgical level of mobility. LTG Duration 3 months post surgery - Two Impairment ROM Short Term Goal (STG) Pt will improve AROM left knee to 0-110 or greater for improved functional gait. 08/24/21 - Pt has 1-125 active ROM today. STG Duration 1 month post surgery - 08/24/21 Forming Tube Selector Goal (LTG) Pt will improve AROM left knee to 0-125 or greater for independent stair navigation. 08/30/21 MET 09/06/21 - AROM measured at 0- 130 LTG Duration 2 months post surgery - 09/24/21 One Impairment HEP Alf Goal (LTG) Pt will perform progressive HEP independently including flexibility, balance, and strengthening exercises to decrease pain and improve gait quality 09/06/21 - Good goal progress. LTG Duration 2 months post surgery - 09/24/21 Progress Towards Goals Progress Towards Goals Progressing Toward Goals Progress Comments ROM has improved dramatically but Jacinto continues to deal with left knee pain which is affecting gait quality. Pt would benefit from further therapy to improve knee posture and stability and to improve gait quality. Assessment Summary Assessment Pt continues to use trekking poles or cane for longer distances and uneven surfaces. She struggles today with uneven surface training. His knee tends to drift inward during sit to stand and stair descent. Band at knees was helpful tactile feedback during STS. Pt would benefit from further therapy to improve knee posture and stability and to improve gait quality. Physical Therapy Plan Frequency and Duration Frequency of Treatment Every Other Week Duration of Treatment 1 month Plan of Care Start Date 09/28/21 Plan of Care End Date 10/28/21 Therapeutic Interventions Therapeutic Interventions Balance Training,Gait Training ,Home Exercise Program,Joint Mobilizations,Manual Therapy, Neuromuscular Re-education, Orthotic/Prosthetic Management ,Patient/Caregiver Education, Self-Care/Home Management,Soft Tissue Mobilization,Taping, Therapeutic Activities, Therapeutic Exercises Modalities Cold Pack/Ice Massage,Hot Packs Other Therapeutic Interventions cryo cuff Next Visit Focus/Plan Next Note Type Treatment Note Next Visit Plan Assess 6MWT and FGA; progress gait training
--- NOTE | 2021-09-28 12:24 | PT.OPPOC ---
Physical, Occupational & Speech Therapy At [facility] Current Diagnoses Unilateral primary osteoarthritis, left knee (09/28/21) Difficulty in walking, not elsewhere classified (09/28/21) Presence of left artificial knee joint (09/28/21) Visit Care Team Role Provider Type Mary Alice Bearden MD Family Provider Physician Primary Care Provider Specialty: Family Practice Address: [address] [place] [address], [facility] [place], [address] Email: [email or web address] Radha Otero MD Attending Provider Physician Referring Provider Specialty: Orthopedic Surgery Address: [address] [place] [address], [place], [address] Email: [email or web address] Plan Of Care PT-OP-T Assessment and Plan Start: 07/07/21 13:34 Freq: Status: Active Protocol: Document 09/28/21 10:30 AW (Rec: 09/28/21 12:24 AW [id number]) Physical Therapy Assessment Goals Four Impairment balance Long-Term Goal (LTG) Pt will perform WNL on standardized balance test as a measure of decreased falls risk. 09/06/21 - Pt scored 20/24 on DGI which exceeds the cutoff for increased risk of falls. LTG Duration 3 months post surgery - Three Impairment gait Short Term Goal (STG) Pt will walk 1500 feet or greater on 6MWT for improved community ambulation. 08/24/21 Progressing toward goal. Pt walks 1075 feet in 6 min today with SPC ~10% of the time. 09/06/21 - Re-assessed today and pt walked 1330' with SPC making contact ~10% of strides . STG Duration 1 month post surgery - 08/24/21 Long-Term Goal (LTG) Pt will walk 1650 feet or greater on 6MWT for scientologist of pre-surgical level of mobility. LTG Duration 3 months post surgery - Two Impairment ROM Short Term Goal (STG) Pt will improve AROM left knee to 0-110 or greater for improved functional gait. 08/24/21 - Pt has 1-125 active ROM today. STG Duration 1 month post surgery - 08/24/21 Long-Term Goal (LTG) Pt will improve AROM left knee to 0-125 or greater for independent stair navigation. 08/30/21 MET 09/06/21 - AROM measured at 0- 130 LTG Duration 2 months post surgery - 09/24/21 One Impairment HEP It Help Desk Technician Goal (LTG) Pt will perform progressive HEP independently including flexibility, balance, and strengthening exercises to decrease pain and improve gait quality 09/06/21 - Good goal progress. LTG Duration 2 months post surgery - 09/24/21 Progress Towards Goals Progress Towards Goals Progressing Toward Goals Progress Comments ROM has improved dramatically but Jacinto continues to deal with left knee pain which is affecting gait quality. Pt would benefit from further therapy to improve knee posture and stability and to improve gait quality. Assessment Summary Assessment Pt continues to use trekking poles or cane for longer distances and uneven surfaces. She struggles today with uneven surface training. His knee tends to drift inward during sit to stand and stair descent. Band at knees was helpful tactile feedback during STS. Pt would benefit from further therapy to improve knee posture and stability and to improve gait quality. Physical Therapy Plan Frequency and Duration Frequency of Treatment Every Other Week Duration of Treatment 1 month Plan of Care Start Date 09/28/21 Plan of Care End Date 10/28/21 Therapeutic Interventions Therapeutic Interventions Balance Training,Gait Training ,Home Exercise Program,Joint Mobilizations,Manual Therapy, Neuromuscular Re-education, Orthotic/Prosthetic Management ,Patient/Caregiver Education, Self-Care/Home Management,Soft Tissue Mobilization,Taping, Therapeutic Activities, Therapeutic Exercises Modalities Cold Pack/Ice Massage,Hot Packs Other Therapeutic Interventions cryo cuff Next Visit Focus/Plan Next Note Type Treatment Note Next Visit Plan Assess 6MWT and FGA; progress gait training Plan of Care Dates Plan of Care Start Date 09/28/21 Plan of Care End Date 10/28/21 Electronically Signed by: Meggan Fuentes, PT 09/28/21 2618 Please Sign and Return: I have reviewed this Plan of Care and certify that the skilled therapy services above are required to meet the patient?s needs. Physician Signature Date Printed Name and Credentials Clinical Instructor Signature Printed Name and Credentials
--- NOTE | 2021-10-12 12:15 | PT.OTN ---
Current Diagnoses Unilateral primary osteoarthritis, left knee (10/12/21) Difficulty in walking, not elsewhere classified (10/12/21) Presence of left artificial knee joint (10/12/21) Physical Therapy Treatment Note PT-OP-A Visit Information Start: 07/07/21 13:34 Freq: Status: Active Protocol: Document 10/12/21 11:15 AW (Rec: 10/12/21 11:19 AW [id number]) Out-Patient Physical Therapy Visit Information Visit Information Visit Type Treatment Note Visit Start Time 10:30 Visit Stop Time 11:15 Total Visit Minutes 45 Visit Number 11 Number of BRAKE SHOE REBUILDER Visits 0 Evaluation Information Evaluation Date 07/07/21 Precautions Precautions L uni knee 07/25/21 - WBAT PT-OP-B Current Condition Start: 07/07/21 13:34 Freq: Status: Active Protocol: Document 07/27/21 16:45 AW (Rec: 07/27/21 16:53 AW [id number]) Current Condition History of Current Condition History of Current Condition Left unicompartmental medial knee arthroplasty 2 days ago. Has been ambulating with FWW at home. Taking oxycodone and ibuprofen/tylenol at home. Pain is largely concentrated in medial and anterior knee. 7 /10 pain with ambulation. Has been icing with gel packs nearly constantly. Sister in law stayed < 48 hours and pt is now alone. Another friend is going to arrive tomorrow to assist. Future Testing and Treatments Planned Follow up with ortho in two weeks. Treatment Goals Patient/Caregiver Goals Jacinto would like to be able to walk faster, including power walking for exercise. He would like to be able to access local [employer] trails with greater confidence Current Functional Impairments (Reported) Functional Limitations- ADL's Difficulty with lower body dressing due to pain Functional Limitations- Mobility/Gait Walks 100 feet with FWW SBA Personal Factors Other Personal Factors That May Effect Pt is likely to do too much Therapy/Recovery too soon and will need vigilance in this regard. PT-OP-C Subjective Start: 07/07/21 13:34 Freq: Status: Active Protocol: Document 10/12/21 11:15 AW (Rec: 10/12/21 11:19 AW [id number]) OP-PT Subjective Patient Comments Patient Comments I walked [place] [address] yesterday with the cane and I' m not even sore today! Patient Reported Progress Improving PT-OP-F Manual Assessment Start: 07/07/21 13:34 Freq: Status: Active Protocol: Document 07/07/21 14:30 AW (Rec: 07/10/21 15:55 AW [id number]) Manual Assessments Soft Tissue Assessment Soft Tissue Mobility Assessment Increased tension at left pes anserine. Vastus lateralis tension bilaterally. Soft tissue swelling/bump posterior medial left knee. Decreased muscle mass left medial gastroc. PT-OP-G Mobility & Gait Start: 07/07/21 13:34 Freq: Status: Active Protocol: Document 07/27/21 16:45 AW (Rec: 07/27/21 16:58 AW [id number]) OP Mobility Evaluation Transfers Sit to Stand definite need to use hands Bed to Chair Transfers uses RLE to lift LLE OP Gait Assessment Gait Gait Assistance Required: Standby Assistance,Contact Guard Assist Distance (Feet) 100 Able to Maintain Weight Bearing Status Yes During Gait Assistive Devices Assistive Device Front Wheeled Walker Orthotic/Prosthetic Devices or Brace: No Gait Deviations General Gait Pattern Antalgic,Decreased Stride Length,Flexed Trunk,Step-to Gait,Wide Based Gait Factors Limiting Gait Function Factors Limiting Gait Function Decreased Strength,Limited Range of Motion,Pain,Poor Balance,Poor Safety Awareness Comments Gait Comments Pt arrived with no AD. Trialed SPC but pt was unsafe and lacked stability. With FWW, pt able to ambulate to car, responding well to cues for equal step lengths and heel strike at initial contact. Stair Climbing Evaluation Comments Stair Climbing Comments Not assessed. PT-OP-J Posture/Palpation/Skin Start: 07/07/21 13:34 Freq: Status: Active Protocol: Document 07/07/21 14:30 AW (Rec: 07/10/21 15:55 AW [id number]) Posture Evaluation Comments Posture Comments Soft tissue swelling/bump is apparent on the left medial posterior knee. Left tibial torsion more pronounced than right. Overpronation and genu varum more apparent left side. PT-OP-K Range of Motion Start: 07/07/21 13:34 Freq: Status: Active Protocol: Document 08/24/21 11:15 AW (Rec: 08/24/21 11:16 AW [id number]) Knee Goniometric Range of Motion Knee Left Patient Position Supine Flexion Active (degrees) 125 Flexion Passive (degrees) 128 Extension Active (degrees) 1 PT-OP-M Strength Start: 07/07/21 13:34 Freq: Status: Active Protocol: Document 07/27/21 16:45 AW (Rec: 07/27/21 16:58 AW [id number]) Knee Strength Knee Manual Muscle Testing Left Flexion (S2) 3- Fair- Extension (L3) 3 Fair PT-OP-Q Treatments Start: 07/07/21 13:34 Freq: Status: Active Protocol: Document 10/12/21 11:15 AW (Rec: 10/12/21 11:19 AW [id number]) Cardio Equipment Bicycle (Upright) Duration (Minutes) 8 Resistance 5 Seat Position 5 Other knee flexion in comfortable range Therapeutic Exercises Standing Exercises bosu step up Standing Exercise Name bosu step up - lateral Side bilateral Resistance round side bosu Reps/Minutes x10 BLE SLS Standing Exercise Name SLS - foam Equipment Used added to HEP Comments improved LLE stability with reps eccentric knee flexion Standing Exercise Name eccentric knee flexion/step down Side left Equipment Used 4 step Reps/Minutes x5 Comments not irritating today when pt concentrates on toe tap only resisted ambulation Standing Exercise Name resisted ambulation Resistance yellow loop Reps/Minutes 8' lap x 4 Comments fwd/bwd only w/ focus on extension TKE Standing Exercise Name TKE Side left Resistance TB2 Reps/Minutes 15 x 2 Comments HEP review Other Exercises sit to stand Other Exercise Name hip hinge progressed to STS Comments HEP Gait Training Gait Activity stairs Description stairs Device Used uni rail Level of Assistance SBA Surface 4 and 6 stairs Distance/Duration 2 reps Treatment Focus patterning, stability Comments - step over step w/ uni rail with improved stability today, no pain 6MWT Description 6MWT Device Used SPC mostly held in hand, used <5% of strides Level of Assistance IND Surface level Distance/Duration 1395 Treatment Focus 1.2 m/s avg gait speed Comments Pt uses SPC <5% of the time. Decreased lateral lean. Split times are consistent with no change in gait speed. Manual Therapy Treatment Soft Tissue Mobilization scar mob Body Location scar mob Intensity/Depth Superficial Body Position Supine Comments duirng passive extension hang Joint Mobilizations patellar Joint patellar Direction superior Grade III Body Position Supine PT-OP-R Modalities Start: 07/07/21 13:34 Freq: Status: Active Protocol: Document 08/08/21 09:27 MA (Rec: 08/08/21 10:15 MA [id number]) Hot Pack/Cold Pack Treatment Cold Pack Location left knee Patient Position Hooklying Treatment Duration (minutes) 15 Patient Tolerance Good Comments cold packs today as cryo cuff was unavailable PT-OP-T Assessment and Plan Start: 07/07/21 13:34 Freq: Status: Active Protocol: Document 10/12/21 11:15 AW (Rec: 10/12/21 11:19 AW [id number]) Physical Therapy Assessment Goals Four Impairment balance Fpc Goal (LTG) Pt will perform WNL on standardized balance test as a measure of decreased falls risk. 09/06/21 - Pt scored 20/24 on DGI which exceeds the cutoff for increased risk of falls. LTG Duration 3 months post surgery - Three Impairment gait Short Term Goal (STG) Pt will walk 1500 feet or greater on 6MWT for improved community ambulation. 08/24/21 Progressing toward goal. Pt walks 1075 feet in 6 min today with SPC ~10% of the time. 09/06/21 - Re-assessed today and pt walked 1330' with SPC making contact ~10% of strides . STG Duration 1 month post surgery - 08/24/21 Bilingual Operator Goal (LTG) Pt will walk 1650 feet or greater on 6MWT for rastafari of pre-surgical level of mobility. 10/12/21 - Pt walked 1395 feet in 6 minutes today with minimal (<5%) use of SPC. LTG Duration 3 months post surgery - Two Impairment ROM Short Term Goal (STG) Pt will improve AROM left knee to 0-110 or greater for improved functional gait. 08/24/21 - Pt has 1-125 active ROM today. STG Duration 1 month post surgery - 08/24/21 Bilingual Operator Goal (LTG) Pt will improve AROM left knee to 0-125 or greater for independent stair navigation. 08/30/21 MET 09/06/21 - AROM measured at 0- 130 LTG Duration 2 months post surgery - 09/24/21 One Impairment HEP Fpc Goal (LTG) Pt will perform progressive HEP independently including flexibility, balance, and strengthening exercises to decrease pain and improve gait quality 09/06/21 - Good goal progress. LTG Duration 2 months post surgery - 09/24/21 Assessment Summary Assessment Pt now uses cane only as reassurance for longer distances and on uneven terrain. Knee posture improved during stability training and stairs today. Pt feels ready for discharge from therapy. Physical Therapy Plan Frequency and Duration Frequency of Treatment Every Other Week Duration of Treatment 1 month Plan of Care Start Date 09/28/21 Plan of Care End Date 10/28/21 Therapeutic Interventions Therapeutic Interventions Balance Training,Gait Training ,Home Exercise Program,Joint Mobilizations,Manual Therapy, Neuromuscular Re-education, Orthotic/Prosthetic Management ,Patient/Caregiver Education, Self-Care/Home Management,Soft Tissue Mobilization,Taping, Therapeutic Activities, Therapeutic Exercises Modalities Cold Pack/Ice Massage,Hot Packs Other Therapeutic Interventions cryo cuff Discharge Physical Therapy Discharge Reasons Goals Met Discharge Comments Pt has met ROM and balance goals. Endurance improved significantly and pt is now walking up/down moderate grade paved trails 2 miles without pain. Pt is appropriate for discharge to [facility].
== END 2021-10-12 11:59 ==
LOC: PHYS 10:30
PROVIDERS: Family Provider Student in an Organized Health Care Education/Training Program; PCP Student in an Organized Health Care Education/Training Program; Referring Provider Orthopaedic Surgery; Visit Provider Orthopaedic Surgery
DX: M17.12 Unilateral primary osteoarthritis, left knee (principal); Z96.652 Presence of left artificial knee joint; R26.2 Difficulty in walking, not elsewhere classified
CPT/HCPCS: 97010; 97110; 97116; 97140; 97162

== ENCOUNTER → 2021-12-08 12:23 | Outpatient (CLI) | payer OTHER, SELFPAY ==
--- NOTE | 2021-12-08 | DI.RAD.S_ITS ---
PROCEDURE: XR KNEE LT 3V INDICATIONS: Pain in left knee TECHNIQUE: 3 views of the knee were acquired. COMPARISON: [facility], CR, XR KNEE 4+ VIEWS LEFT, 08/08/2021, 15:47. [facility], CR, XR KNEE LT 3V, 12/15/2020, 12:24. FINDINGS: Bones: Stable alignment of left knee medial unicondylar arthroplasty. No periprosthetic fractures or evidence of loosening/infection. Mild periarticular osteophyte formation of the lateral femoral tibial joint as well as the patellofemoral knee joint. Soft tissues: Trace joint effusion. No suspicious soft tissue calcifications. IMPRESSION: 1. Stable appearance of left knee medial unicondylar arthroplasty. 2. Mild degenerative change of the lateral femoral tibial and patellofemoral knee joints. Dictated by: Tonio Mojica [facility] Interpreted: Bere Yu MD on 12/08/2021 at 12:51 Transcribed by: ALEXI on 12/08/2021 at 12:52 Approved by: Bere Yu MD, PhD on 12/08/2021 at 13:08
== END ==
PROVIDERS: Family Provider Student in an Organized Health Care Education/Training Program; PCP Student in an Organized Health Care Education/Training Program; Referring Provider Student in an Organized Health Care Education/Training Program; Visit Provider Student in an Organized Health Care Education/Training Program
DX: M25.562 Pain in left knee (principal); Z96.652 Presence of left artificial knee joint
CPT/HCPCS: 73562; 85379

== ENCOUNTER → 2021-12-08 12:23 | Outpatient (ROUT) | payer OTHER, SELFPAY ==
[2021-12-08 12:42] LABS: D Dimer < 200 ng/mL (<230)
== END ==
PROVIDERS: Family Provider Student in an Organized Health Care Education/Training Program; PCP Student in an Organized Health Care Education/Training Program; Visit Provider Student in an Organized Health Care Education/Training Program
DX: M25.562 Pain in left knee (principal)
CPT/HCPCS: 85379

== ENCOUNTER → 2024-11-11 14:51 | Outpatient (CLI) | payer MEDICARE, SELFPAY ==
--- NOTE | 2024-11-11 14:54 | DI.RAD.S_ITS ---
PROCEDURE: XR CHEST 2V INDICATIONS: Cough TECHNIQUE: 2 views of the chest were acquired. COMPARISON: None. FINDINGS: Surgical changes and devices: None. Lungs and pleura: Lungs are clear. No pleural effusions or pneumothorax. Mediastinum: Mediastinal contours are normal. Heart size is normal. Bones and chest wall: No suspicious bony abnormalities. Soft tissues appear unremarkable. IMPRESSION: No acute cardiopulmonary abnormality is seen. Dictated by: Lillian Do M.D. on 11/13/2024 at 8:22 Approved by: Lillian Do M.D. on 11/13/2024 at 8:22
== END ==
PROVIDERS: Family Provider Student in an Organized Health Care Education/Training Program; PCP Family Medicine; Referring Provider Family Medicine; Visit Provider Family Medicine
DX: E03.9 Hypothyroidism, unspecified (principal); R05.9 Cough, unspecified
CPT/HCPCS: 36415; 71046; 84443

== ENCOUNTER → 2024-11-17 09:46 | Outpatient (CLI) | payer MEDICARE, SELFPAY | PROVIDERS: Family Provider Student in an Organized Health Care Education/Training Program; PCP Family Medicine; Referring Provider Family Medicine; Visit Provider Family Medicine | DX: R06.00 Dyspnea, unspecified (principal); R05.3 Chronic cough | CPT/HCPCS: 94060; 94726; 94729 ==

== ENCOUNTER → 2024-11-18 09:47 | Outpatient (CLI) | payer MEDICARE, SELFPAY ==
--- NOTE | 2024-11-18 09:49 | DI.CT.S_ITS ---
PROCEDURE: CT ABDOMEN PELVIS W CON INDICATIONS: Abdominal hernia TECHNIQUE: After the administration of intravenous contrast, axial sections acquired from the lung bases to the pubic symphysis. Coronal and sagittal reformats were performed. For radiation dose reduction, the following was used: automated exposure control, adjustment of mA and/or kV according to patient size. COMPARISON: [facility], CR, XR CHEST 2V, 11/11/2024, 15:08. FINDINGS: Image quality: Diagnostic. Lower Chest: 7 mm posterior right lower lobe pulmonary nodule incompletely visualized. Bibasilar atelectasis. ABDOMEN: Liver: No solid mass. There is diffuse hypoattenuation of the liver parenchyma relative to the spleen compatible with hepatic steatosis. Gallbladder: No radiopaque gallstones or wall thickening. Biliary ducts: No biliary dilation. Pancreas: Homogeneous enhancement without focal lesions or pancreatic ductal dilatation. No peripancreatic inflammation or organized fluid collections. Spleen: Size is within normal limits. Adrenal Glands: No adrenal nodules. Kidneys and Ureters: No hydronephrosis. No solid mass. No complex renal cystic lesion which requires follow up. Small bilateral renal hypodensities likely representing cysts. Stomach and Bowel: Normal colonic caliber, without significant wall thickening. Scattered colonic diverticula without acute inflammation. No evidence for small bowel obstruction or associated inflammatory changes. Normal appendix. Peritoneum: No abnormal intraperitoneal fluid. No free air. Ventral Wall: There is a small fat-containing umbilical hernia without acute inflammation. Abdominal Nodes: No retroperitoneal or mesenteric adenopathy by size criteria. Vessels: Scattered atherosclerotic calcifications of the abdominal aorta and iliac vessels without aneurysmal dilatation. The inferior vena cava appears patent. PELVIS: Pelvic Organs: Unremarkable. Bladder: No bladder wall thickening, accounting for underdistention. Pelvic Nodes: No enlarged lymph nodes. Miscellaneous: No inguinal hernias are seen. Bones: No aggressive osseous abnormality. No acute vertebral body compression fractures. Multilevel spondylitic changes throughout the imaged spine. No suspicious osseous lesions. IMPRESSION: CT abdomen and pelvis without acute abnormalities. Small fat containing umbilical hernia without acute inflammation. 7 mm posterior right lower lobe pulmonary nodule. Recommend follow-up chest CT in 6-12 months to document stability. Hepatic steatosis. Colonic diverticulosis without acute diverticulitis. Normal appendix. Other chronic findings as above. Dictated by: Ace Terrell M.D. on 11/18/2024 at 14:00 Approved by: Ace Terrell M.D. on 11/18/2024 at 14:05
[2024-11-18 10:28] LABS: Estimated Glomerular Filt Rate > 60 mL/min (>60)
== END ==
PROVIDERS: Radiology Diagnostic Radiology; Family Provider Student in an Organized Health Care Education/Training Program; PCP Family Medicine; Referring Provider Family Medicine; Visit Provider Family Medicine
DX: K46.9 Unspecified abdominal hernia without obstruction or gangrene (principal); K42.9 Umbilical hernia without obstruction or gangrene; K57.90 Diverticulosis of intestine, part unspecified, without perforation or abscess without bleeding; K76.0 Fatty (change of) liver, not elsewhere classified; R91.1 Solitary pulmonary nodule
CPT/HCPCS: 36415; 74177; 82565; Q9967

== ENCOUNTER → 2024-12-11 09:10 | Outpatient (CLI) | payer MEDICARE, SELFPAY ==
--- NOTE | 2024-12-11 09:11 | DI.ECHO.S_ITS ---
[facility] : : [address] : : [place] : : [id number] : : Phone: [phone] Echocardiogram Report + + :Name: JENS RAWLS Study Date: 12/11/2024 Height: 72 in : :[facility] ReadingLocation: Weight: 210 lb : : Gender: Male BSA: 2.2 m2 : :: 1955 Age: 69 yrs BP: 109/75 mmHg: :Reason For Study: MURMUR : :Ordering Physician: FREDY, : :CAROLINA Spring Performed By: Panchito Salmon : :Referring: CAROLINA DANIEL : + + Interpretation Summary The ejection fraction is estimated to be 55-60%. Diastolic function could not be accurately assessed due to contradictory data. The right ventricle is normal in size and function. No valvular abnormalities. Pulmonary artery pressures cannot be estimated because of the lack of a measurable TR jet velocity but the IVC suggests a CVP of around 3 mmHg. The ascending aorta is mildly enlarged. Procedure: A two-dimensional transthoracic echocardiogram with color flow and Doppler was performed. The study quality was technically good. There is no prior echocardiogram noted for this patient. The patient was in normal sinus rhythm during the exam. Left Ventricle: The left ventricle is normal in size. Left ventricular wall thickness is mildly increased. There is no ventricular septal defect visualized. The ejection fraction is estimated to be 55-60%. There are no focal wall motion abnormalities. Diastolic function could not be accurately assessed due to contradictory data. Right Ventricle: The right ventricle is normal in size and function. Atria: The left atrial size is normal. Right atrial size is normal. There is no Doppler evidence for an interatrial shunt. Mitral Valve: The mitral valve leaflets appear normal. There is no evidence of stenosis, fluttering, or prolapse. There is no mitral regurgitation noted. Aortic Valve: The aortic valve is trileaflet. The aortic valve opens well. There is no aortic valve stenosis. No aortic regurgitation is present. Tricuspid Valve: The tricuspid valve leaflets are thin and pliable. There is trace tricuspid regurgitation. Pulmonary artery pressures cannot be estimated because of the lack of a measurable TR jet velocity but the IVC suggests a CVP of around 3 mmHg. Pulmonic Valve: The pulmonic valve leaflets are thin and pliable; valve motion is normal. There is trace pulmonic regurgitation. Great Vessels: The aortic root is mildly dilated. The ascending aorta is mildly enlarged. The pulmonary artery is normal size. Pericardium/ Pleura There is no pericardial effusion. There is no pleural effusion. MMode/2D Measurements & Calculations LVIDd: 4.2 cm LVOT diam: 2.1 cm LVIDs: 2.8 cm Ao root diam: 4.4 cm FS: 33.2 % asc Aorta Diam: 3.8 cm EPSS: 0.41 cm Ao Arch Diam (Prox Trans): 2.2 cm IVSd: 1.2 cm LVPWd: 1.1 cm LV wharton. diameter/BSA (cm/m^2): 1.9 LV sys. diameter/BSA (cm/m^2): 1.3 LA A2 area: 16.0 cm2 RA long axis: 5.2 cm LA A4 area: 16.8 cm2 RA area: 17.6 cm2 LA length (vol): 5.7 cm RA vol: 50.1 ml LA vol: 40.0 ml RA : 23.0 ml/m2 LA vol index: 18.4 ml/m2 IVC diam: 1.9 cm RVD1 (basal): 3.9 cm RVD2 (mid): 3.4 cm TAPSE: 2.2 cm Doppler Measurements & Calculations Ao V2 max: 132.0 cm/sec LVOT Max Tavo: 123.2 cm/sec Ao V2 mean: 94.5 cm/sec LV V1 max P.1 mmHg Ao max P.0 mmHg LV V1 VTI: 24.2 cm Ao mean P.9 mmHg KAELA(I,D): 3.2 cm2 Ao V2 VTI: 26.6 cm KAELA(V,D): 3.3 cm2 sev ratio: 0.91 KAELA indexed to BSA (cm^2/m^2): 1.5 MV E max tavo: 48.6 cm/sec TR max tavo: 294.8 cm/sec MV A max tavo: 69.8 cm/sec TR max P.8 mmHg MV E/A: 0.70 PA V2 max: 57.7 cm/sec Med Peak E' Tavo: 5.0 cm/sec PA V2 mean: 41.4 cm/sec E/E' med: 9.7 PA mean P.76 mmHg Lat Peak E' Tavo: 7.1 cm/sec PA pr(Accel): 61.9 mmHg E/E' lat: 6.8 E/e' average: 8.3 MV dec time: 0.19 sec SVLVOT): 84.6 ml Reading Physician:08:40 PM
== END ==
PROVIDERS: Family Provider Student in an Organized Health Care Education/Training Program; PCP Family Medicine; Referring Provider Family Medicine; Visit Provider Family Medicine
DX: I77.810 Thoracic aortic ectasia (principal); I77.89 Other specified disorders of arteries and arterioles; R01.1 Cardiac murmur, unspecified
CPT/HCPCS: 93306

== ENCOUNTER → 2025-06-04 07:47 | Outpatient (CLI) | payer MEDICARE, SELFPAY ==
[2025-06-04 08:34] LABS: Add Manual Diff / Slide Review NO; Hematocrit 43.2 % (41-53); Hemoglobin 15.2 g/dL (13.5-17.5); Lymphocytes Absolute Auto 1300 /uL (1100-4500); Mean Corpuscular HGB Conc 35.1 % (30-36); Mean Corpuscular Hemoglobin 31.7 PG (26-34); Mean Corpuscular Volume 90.4 fL (80-100); Platelet Count 190 X10^3/uL (150-400)
[2025-06-04 09:16] LABS: Alanine Aminotransferase 26 IU/L (<50); Albumin 4.4 g/dL (3.5-5.0); Albumin Globulin Ratio 1.7 (1.0-2.8); Alkaline Phosphatase 53 U/L (38-126); Blood Urea Nitrogen 19 mg/dL (9-20); Calcium 9.2 mg/dL (8.4-10.2); Carbon Dioxide 26 mmol/L (22-32); Chloride 104 mmol/L (98-107); Cholesterol 119 mg/dL (140-199); Estimated Glomerular Filt Rate > 60 mL/min (>60); Globulin 2.6 g/dL (1.7-4.1); Glucose 104 mg/dL (70-99); HDL Cholesterol 48 mg/dL (40-60); HEMOLYSIS < 15 (0-50); Potassium 4.3 mmol/L (3.4-5.1); Sodium 140 mmol/L (137-145); Total Protein 7.0 g/dL (6.3-8.2); Triglycerides 161 mg/dL (35-150)
[2025-06-04 09:41] LABS: TSH w/ Reflex to FT4 1.53 uIU/mL (0.47-4.68)
== END ==
PROVIDERS: Family Provider Student in an Organized Health Care Education/Training Program; PCP Family Medicine; Referring Provider Family Medicine; Visit Provider Family Medicine
DX: R11.11 Vomiting without nausea (principal); E03.9 Hypothyroidism, unspecified; K21.9 Gastro-esophageal reflux disease without esophagitis; R91.1 Solitary pulmonary nodule; B35.1 Tinea unguium
CPT/HCPCS: 36415; 80053; 80061; 84443; 85025